=== PATIENT | male | born 1965 | race African-American/Black ===

== ENCOUNTER 2016-09-25 04:57 | Emergency (ER) | payer SELFPAY ==
[~2016-09-25] VITALS: Ht 182.9 cm; Wt 133.2 kg
[2016-09-25] MEDS ORDERED: METF100010 PO (05:11)
[2016-09-25] MEDS ORDERED: CEFTRIAXONE 250 MG ONE (05:27)
[2016-09-25] MEDS ORDERED: AZITHROMYCIN 500 MG TABLET ONE (05:27)
[2016-09-25] MEDS ORDERED: CEFTRIAXONE 250 MG IM ONE (05:30)
[2016-09-25] MEDS ORDERED: AZITHROMYCIN 500 MG TABLET PO ONE (05:30)
[2016-09-25 05:52] VITALS: BP 138/78
== END 2016-09-25 05:58 | disposition home or self-care (01) ==
LOC: ED 05:52
DX: Z76.0 Encounter for issue of repeat prescription (principal); N34.2 Other urethritis; Z20.2 Contact with and (suspected) exposure to infections with a predominantly sexual mode of transmission; E11.9 Type 2 diabetes mellitus without complications; I10 Essential (primary) hypertension
CPT/HCPCS: 96372; 99283; J0696

== ENCOUNTER 2018-08-26 08:57 | Inpatient (IN) | payer MEDICAID, OTHER ==
[~2018-08-26] VITALS: Ht 182.9 cm; Wt 103.6 kg
[~2018-08-26 08:57] MED LIST: METF100010 PO
[2018-08-26] MEDS ORDERED: SODIUM CHLORIDE 0.9% 1,000 ML IV ONE ×2 (09:33→13:13)
[2018-08-26] MEDS ORDERED: ONDANSETRON 2MG/ML, 2ML ONE (09:41)
[2018-08-26] MEDS ORDERED: MORPHINE SULFATE 4 MG/ML, 1ML ONE (09:41)
[2018-08-26] MEDS: MORPHINE SULFATE 4 MG/ML, 1ML IVPush PRN ×3 (09:45→16:49)
[2018-08-26] MEDS ORDERED: SODIUM CHLORIDE 0.9% 1,000ML IVBOLUS ONE ×4 (10:00→14:30)
[2018-08-26] MEDS ORDERED: SODIUM CHLORIDE FLUSH 10ML SYR IVF ONE (10:00)
[2018-08-26] MEDS ORDERED: ONDANSETRON 2MG/ML, 2ML IVPush ONE (10:00)
[2018-08-26 10:16] LABS: MEAN CORPUSCULAR HEMOGLOBIN 29.4 pg (27.5-34.5); MEAN CORPUSCULAR HGB CONC 33.2 g/dL (33.2-36.2); MEAN CORPUSCULAR VOLUME 88.4 fL (81-97); MEAN PLATELET VOLUME 8.4 fL (7.4-10.4); PLATELET COUNT 380 x10^3/uL (130-400); RED BLOOD COUNT 5.35 x10^6/uL (4.38-5.82); RED CELL DISTRIBUTION WIDTH 13.4 % (9.4-14.8)
[2018-08-26 10:28] LABS: ALANINE AMINOTRANSFERASE 24 U/L (12-78); ANION GAP 19 mmol/L (5-15); CALCIUM 9.6 mg/dL (8.5-10.1); CHLORIDE 84 mmol/L (98-107); CREATININE 1.39 mg/dL (0.7-1.3)
[2018-08-26 10:32] LABS: ALKALINE PHOSPHATASE 206 U/L (45-117); BILIRUBIN,TOTAL 1.3 mg/dL (0.2-1.0); TOTAL PROTEIN 8.9 g/dL (6.4-8.2)
[2018-08-26 10:46] LABS: ACETONE, SERUM Small (20mg/dL) mg/dL (Negative)
[2018-08-26 10:46] LABS: MD YES
[2018-08-26] MEDS ORDERED: INSULIN LISPRO 100 UNITS/ML, PEN ONE (10:48)
[2018-08-26 10:49] LABS: BAND#(MANUAL) 6.33 x10^3/uL; BANDS%(MANUAL) 28 % (0-7); LYMPH#(MANUAL) 0.68 x10^3/uL (1-3.4); LYMPHS% (MANUAL) 3 % (22-44); METAMYELOCYTES# (MANUAL) 0.23 x10^3/uL (0-0); METAMYELOCYTES% (MANUAL) 1 % (0-1); MONOS#(MANUAL) 0.68 x10^3/uL (0.3-2.7); MONOS% (MANUAL) 3 % (2-9); REACTIVE LYMPHS # (MANUAL) 0.23 x10^3/uL (0-0); REACTIVE LYMPHS % (MANUAL) 1 % (0-0); SEG#(MANUAL) 14.46 x10^3/uL (1.8-6.8); SEGS% (MANUAL) 64 % (42-75)
[2018-08-26 10:50] LABS: <PLATELET ESTIMATE> ADEQUATE; ANISOCYTOSIS 1+
[2018-08-26 10:51] LABS: GIANT PLATELETS 1+
[2018-08-26] MEDS ORDERED: PIPERACILLIN/TAZO/PMX 3.375GM 50 ML ONE (10:58)
[2018-08-26] MEDS ORDERED: INSULIN REGULAR 100 UNITS/ML, 3ML VIAL SQ-INSULIN ONE (11:00)
[2018-08-26] MEDS ORDERED: PIPERACILLIN/TAZO/PMX 4.5GM 100 ML IVPB ONE (11:00)
[2018-08-26] MEDS ORDERED: VANCOMYCIN PER PHARMACY MC ONE (11:00)
[2018-08-26] MEDS ORDERED: OMNIPAQUE 350 MG/ML, 100ML BOTTLE ONE (11:22)
[2018-08-26] MEDS ORDERED: VANCOMYCIN 1,800 MG in SODIUM CHLORIDE 0.9% 250 ML IV ONE (11:30)
[2018-08-26] MEDS ORDERED: PIPERACILLIN/TAZO/PMX 3.375GM 50 ML IV ONE (11:30)
[2018-08-26] MEDS ORDERED: LIDOCAINE-MPF 1%, 5ML INFIL ONE (12:00)
[2018-08-26] MEDS ORDERED: DIPH,PERTUSS(ACELL),TET VAC/PF 0.5 ML IM-VACC ONE ×2 (12:00→13:02)
[2018-08-26] MEDS ORDERED: LIDOCAINE 1%-EPI 1:100K, 20ML ONE (12:30)
[2018-08-26 12:37] LABS: CULTURE INDICATED? YES; MICROSCOPIC INDICATED
--- NOTE | 2018-08-26 13:09 | NUR ---
TASK RN: FIRST CONTACT WITH PT. PT RESTING ON GURNEY. NO ACUTE DISTRESS NOTED. PT VERBALIZES UNDERSTANDING REGARDING TDAP IMMUNIZATION. NO NEEDS REQUESTED AT THIS TIME.
[2018-08-26] MEDS ORDERED: SODIUM CHLORIDE FLUSH 10ML SYR IVF PRN (13:30)
[2018-08-26] MEDS: SODIUM CHLORIDE 0.9% 1,000 ML IV SCH ×2 (14:02→16:24)
[2018-08-26] MEDS ORDERED: PHARMACY MAY ADJ FOR RENAL FX MC PRN (14:30)
[2018-08-26] MEDS ORDERED: SODIUM CHLORIDE 0.9%, 500ML IVBOLUS PRN (14:30)
[2018-08-26] MEDS ORDERED: VANCOMYCIN PER PHARMACY MC PRN (14:30)
[2018-08-26] MEDS ORDERED: CEFEPIME 1 GM in DEXTROSE 5% 50 ML IV SCH (15:00)
[2018-08-26 15:11] VITALS: BP 138/83
[2018-08-26] MEDS ORDERED: PHARMACOKINETIC MONITORING MC PRN (15:30)
[2018-08-26] MEDS ORDERED: PHARMACOKINETIC CONSULTATION MC ONE (15:30)
[2018-08-26] MEDS: HEPARIN 5,000 UNITS/ML, 1ML SQ SCH (16:50)
[2018-08-26] MEDS: INSULIN LISPRO 100 UNITS/ML, PEN SQ-INSULIN SCH ×3 (17:53→22:55)
[2018-08-26 19:14] VITALS: BP 146/78
[2018-08-26] MEDS: SODIUM CHLORIDE FLUSH 10ML SYR IVF SCH (20:07)
[2018-08-26] MEDS ORDERED: DEXTROSE 50%, 50ML SYRINGE IVPush PRN (20:30)
[2018-08-26] MEDS ORDERED: DEXTROSE 4 GM TAB.CHEW PO PRN (20:30)
[2018-08-26] MEDS ORDERED: GLUCAGON 1 MG IM PRN (20:30)
[2018-08-26] MEDS ORDERED: INSULIN GLARGINE 100 UNITS/ML, PEN SQ-INSULIN SCH (21:00)
[2018-08-26 22:51] LABS: MEAN CORPUSCULAR HEMOGLOBIN 30.1 pg (27.5-34.5); MEAN CORPUSCULAR VOLUME 88.7 fL (81-97); PLATELET COUNT 369 x10^3/uL (130-400); RED CELL DISTRIBUTION WIDTH 13.5 % (9.4-14.8)
[2018-08-26 23:00] LABS: ALANINE AMINOTRANSFERASE 20 U/L (12-78); ANION GAP 10 mmol/L (5-15); CALCIUM 8.2 mg/dL (8.5-10.1); CHLORIDE 89 mmol/L (98-107); CREATININE 0.95 mg/dL (0.7-1.3)
[2018-08-26 23:02] LABS: ALKALINE PHOSPHATASE 156 U/L (45-117); BILIRUBIN,TOTAL 1.2 mg/dL (0.2-1.0); TOTAL PROTEIN 8.1 g/dL (6.4-8.2)
[2018-08-26 23:15] LABS: MD YES
[2018-08-26 23:16] LABS: BAND#(MANUAL) 2.87 x10^3/uL; BANDS%(MANUAL) 17 % (0-7); LYMPH#(MANUAL) 0.85 x10^3/uL (1-3.4); LYMPHS% (MANUAL) 5 % (22-44); MONOS#(MANUAL) 0.51 x10^3/uL (0.3-2.7); MONOS% (MANUAL) 3 % (2-9); SEG#(MANUAL) 12.68 x10^3/uL (1.8-6.8); SEGS% (MANUAL) 75 % (42-75)
[2018-08-26 23:17] LABS: <PLATELET ESTIMATE> ADEQUATE; ANISOCYTOSIS 1+; LARGE PLATELETS 1+
[2018-08-27 00:01] VITALS: BP 131/84
[2018-08-27] MEDS: SODIUM CHLORIDE 0.9% 1,000 ML IV SCH ×2 (00:42→05:10)
[2018-08-27] MEDS: CEFEPIME 1 GM in DEXTROSE 5% 100 ML IV SCH ×2 (00:42→08:22)
[2018-08-27] MEDS: HEPARIN 5,000 UNITS/ML, 1ML SQ SCH ×3 (00:56→17:14)
[2018-08-27 01:43] LABS: MEAN CORPUSCULAR VOLUME 88.2 fL (81-97); MEAN PLATELET VOLUME 7.7 fL (7.4-10.4); PLATELET COUNT 349 x10^3/uL (130-400); RED BLOOD COUNT 4.94 x10^6/uL (4.38-5.82); RED CELL DISTRIBUTION WIDTH 13.5 % (9.4-14.8)
[2018-08-27 01:52] LABS: ALANINE AMINOTRANSFERASE 22 U/L (12-78); ALBUMIN 1.5 g/dL (3.4-5.0); ANION GAP 11 mmol/L (5-15); CALCIUM 8.2 mg/dL (8.5-10.1); CHLORIDE 88 mmol/L (98-107); CREATININE 0.96 mg/dL (0.7-1.3)
[2018-08-27 01:54] LABS: ALKALINE PHOSPHATASE 146 U/L (45-117); BILIRUBIN,TOTAL 1.2 mg/dL (0.2-1.0); TOTAL PROTEIN 8.2 g/dL (6.4-8.2)
[2018-08-27 03:42] LABS: MD YES
[2018-08-27 03:44] LABS: <PLATELET ESTIMATE> ADEQUATE; ANISOCYTOSIS 1+; BAND#(MANUAL) 1.83 x10^3/uL; BANDS%(MANUAL) 11 % (0-7); LARGE PLATELETS 1+; LYMPH#(MANUAL) 1.66 x10^3/uL (1-3.4); LYMPHS% (MANUAL) 10 % (22-44); MONOS#(MANUAL) 1.33 x10^3/uL (0.3-2.7); MONOS% (MANUAL) 8 % (2-9); SEG#(MANUAL) 11.79 x10^3/uL (1.8-6.8); SEGS% (MANUAL) 71 % (42-75)
[2018-08-27] MEDS ORDERED: VANCOMYCIN 1,800 MG in SODIUM CHLORIDE 0.9% 250 ML IV SCH (05:00)
[2018-08-27] MEDS: MORPHINE SULFATE 4 MG/ML, 1ML IVPush PRN ×5 (05:10→20:47)
[2018-08-27] MEDS: INSULIN LISPRO 100 UNITS/ML, PEN SQ-INSULIN SCH ×8 (07:00→22:38)
[2018-08-27 07:35] VITALS: BP 132/83
[2018-08-27] MEDS: INSULIN GLARGINE 100 UNITS/ML, PEN SQ-INSULIN SCH ×2 (08:21→22:37)
[2018-08-27] MEDS: SODIUM CHLORIDE FLUSH 10ML SYR IVF SCH ×2 (08:22→22:34)
[2018-08-27] MEDS ORDERED: SODIUM CHLORIDE 0.9% 1,000ML IVBOLUS ONE ×2 (09:30)
[2018-08-27] MEDS ORDERED: CEFTRIAXONE PMX 2GM/50ML 50 ML IV SCH (10:30)
[2018-08-27] MEDS ORDERED: BISACODYL 10 MG SUPP PR PRN (12:00)
[2018-08-27 12:01] LABS: HCT (SEDRATE) 39.4 % (39.2-51.8)
[2018-08-27 12:37] VITALS: BP 146/81
[2018-08-27] MEDS ORDERED: GADOBUTROL 15 MMOL/15 ML VIAL ONE (14:49)
[2018-08-27 16:16] VITALS: BP 149/76
[2018-08-27] MEDS ORDERED: CLINDAMYCIN PMX 600MG/50ML 50 ML IV SCH (16:30)
[2018-08-27] MEDS: VANCOMYCIN 1,800 MG in SODIUM CHLORIDE 0.9% 250 ML IV SCH ×2 (17:00→17:14)
[2018-08-27] MEDS ORDERED: MIDAZOLAM 1 MG/ML, 2ML ONE (17:52)
[2018-08-27] MEDS ORDERED: FENTANYL PF 250 MCG/5ML ONE (17:52)
[2018-08-27] MEDS ORDERED: BACITRACIN 50,000 UNIT ONE (17:56)
[2018-08-27] MEDS ORDERED: BUPIVACAINE/PF-EPI 0.5% 1:200K ONE (17:56)
[2018-08-27] MEDS ORDERED: THROMBIN 5,000 UNIT VIAL TP ONE (17:56)
[2018-08-27] MEDS ORDERED: VANCOMYCIN 1,000 MG ONE (17:56)
[2018-08-27] MEDS ORDERED: OMNIPAQUE 350 MG/ML, 100ML BOTTLE ONE (18:13)
[2018-08-27] MEDS ORDERED: ROCURONIUM 10 MG/ML,10ML ONE (18:20)
[2018-08-27] MEDS ORDERED: ETOMIDATE 40 MG/20 ML ONE (18:20)
[2018-08-27] MEDS ORDERED: ALBUTEROL SULFATE 200 PUFFS/8.5 GR INH ONE (18:20)
[2018-08-27] MEDS ORDERED: SUCCINYLCHOLINE 20 MG/ML, 10ML ONE (18:20)
[2018-08-27] MEDS ORDERED: CEFAZOLIN 1,000 MG ONE (18:20)
[2018-08-27] MEDS ORDERED: PROPOFOL 100 ML IV ONE ×2 (19:54→23:15)
[2018-08-27] MEDS: VANCOMYCIN 2,000 MG in SODIUM CHLORIDE 0.9% 500 ML IV SCH (20:08)
[2018-08-27] MEDS: DOCUSATE 100 MG CAPSULE PO SCH (21:00)
[2018-08-27] MEDS: HEPARIN/LOVENOX MC SCH (21:30)
[2018-08-27] MEDS: NS + 20MEQ KCL 1,000 ML IV SCH (22:32)
[2018-08-27] MEDS: PROPOFOL 100 ML IV PRN (23:50)
[2018-08-28] MEDS ORDERED: PHARMACY MAY ADJ FOR RENAL FX MC SCH
[2018-08-28] MEDS ORDERED: LIDOCAINE-MPF 1%, 2ML ENDO PRN
[2018-08-28] MEDS: HEPARIN 5,000 UNITS/ML, 1ML SQ SCH (01:00)
[2018-08-28] MEDS: HEPARIN/LOVENOX MC SCH (04:35)
[2018-08-28 05:08] LABS: ANION GAP 7 mmol/L (5-15); CALCIUM 7.5 mg/dL (8.5-10.1); CHLORIDE 100 mmol/L (98-107); CREATININE 0.59 mg/dL (0.7-1.3)
[2018-08-28 05:13] LABS: MEAN CORPUSCULAR HEMOGLOBIN 29.8 pg (27.5-34.5); MEAN CORPUSCULAR HGB CONC 33.6 g/dL (33.2-36.2); MEAN CORPUSCULAR VOLUME 88.6 fL (81-97); MEAN PLATELET VOLUME 7.9 fL (7.4-10.4); PLATELET COUNT 283 x10^3/uL (130-400); RED BLOOD COUNT 4.02 x10^6/uL (4.38-5.82); RED CELL DISTRIBUTION WIDTH 13.9 % (9.4-14.8)
[2018-08-28] MEDS: PROPOFOL 100 ML IV PRN ×3 (05:22→21:30)
[2018-08-28 05:48] LABS: MD YES
[2018-08-28 05:50] LABS: BAND#(MANUAL) 0.87 x10^3/uL; BANDS%(MANUAL) 8 % (0-7); LYMPH#(MANUAL) 0.87 x10^3/uL (1-3.4); LYMPHS% (MANUAL) 8 % (22-44); MONOS#(MANUAL) 1.09 x10^3/uL (0.3-2.7); MONOS% (MANUAL) 10 % (2-9); SEG#(MANUAL) 8.07 x10^3/uL (1.8-6.8); SEGS% (MANUAL) 74 % (42-75)
[2018-08-28 05:51] LABS: ANISOCYTOSIS 1+; PMNS WITH VACUOLES 2+; TOXIC GRAN 1+
[2018-08-28 05:53] LABS: <PLATELET ESTIMATE> ADEQUATE; LARGE PLATELETS 1+
[2018-08-28] MEDS: VANCOMYCIN 2,000 MG in SODIUM CHLORIDE 0.9% 500 ML IV SCH (06:29)
[2018-08-28] MEDS: DOCUSATE 100 MG CAPSULE PO SCH ×2 (09:06→20:58)
[2018-08-28] MEDS: FENTANYL PF 100 MCG/2ML IVPush PRN (09:06)
[2018-08-28] MEDS: SODIUM CHLORIDE FLUSH 10ML SYR IVF SCH ×2 (09:06→20:52)
[2018-08-28] MEDS: PANTOPRAZOLE 40 MG IV IV SCH (09:06)
[2018-08-28] MEDS: INSULIN LISPRO 100 UNITS/ML, PEN SQ-INSULIN SCH ×4 (09:07→20:59)
[2018-08-28] MEDS: INSULIN GLARGINE 100 UNITS/ML, PEN SQ-INSULIN SCH ×2 (09:08→20:59)
[2018-08-28 09:38] LABS: MEAN CORPUSCULAR HEMOGLOBIN 29.5 pg (27.5-34.5); MEAN CORPUSCULAR HGB CONC 33.5 g/dL (33.2-36.2); MEAN PLATELET VOLUME 7.5 fL (7.4-10.4); PLATELET COUNT 253 x10^3/uL (130-400); RED BLOOD COUNT 3.94 x10^6/uL (4.38-5.82)
[2018-08-28 09:52] LABS: MD YES
[2018-08-28 09:55] LABS: BAND#(MANUAL) 0.65 x10^3/uL; BANDS%(MANUAL) 6 % (0-7); LYMPH#(MANUAL) 0.86 x10^3/uL (1-3.4); LYMPHS% (MANUAL) 8 % (22-44); MONOS#(MANUAL) 0.97 x10^3/uL (0.3-2.7); MONOS% (MANUAL) 9 % (2-9); REACTIVE LYMPHS # (MANUAL) 0.11 x10^3/uL (0-0); REACTIVE LYMPHS % (MANUAL) 1 % (0-0); SEG#(MANUAL) 8.21 x10^3/uL (1.8-6.8); SEGS% (MANUAL) 76 % (42-75); TOXIC GRAN 1+
[2018-08-28 09:56] LABS: <PLATELET ESTIMATE> ADEQUATE; ANISOCYTOSIS 1+; PMNS WITH VACUOLES 2+
[2018-08-28 09:57] LABS: LARGE PLATELETS 1+
[2018-08-28 10:11] LABS: ALBUMIN 1.1 g/dL (3.4-5.0)
[2018-08-28 10:14] LABS: ANION GAP 9 mmol/L (5-15); CALCIUM 7.4 mg/dL (8.5-10.1); CHLORIDE 100 mmol/L (98-107); CREATININE 0.61 mg/dL (0.7-1.3)
[2018-08-28 10:42] LABS: ALANINE AMINOTRANSFERASE 18 U/L (12-78); ALKALINE PHOSPHATASE 99 U/L (45-117); BILIRUBIN,TOTAL 0.9 mg/dL (0.2-1.0); TOTAL PROTEIN 6.6 g/dL (6.4-8.2)
[2018-08-28] MEDS ORDERED: ACETAMINOPHEN 650 MG/20.3 ML UDC ONE (14:41)
[2018-08-28] MEDS: ACETAMINOPHEN 650 MG/20.3 ML UDC NG PRN (14:59)
[2018-08-28] MEDS: NS + 20MEQ KCL 1,000 ML IV SCH ×2 (14:59→19:21)
[2018-08-28] MEDS ORDERED: VANCOMYCIN 2,000 MG in SODIUM CHLORIDE 0.9% 500 ML IV SCH (19:00)
[2018-08-29] MEDS: FENTANYL PF 100 MCG/2ML IVPush PRN ×3 (02:47→20:38)
[2018-08-29] MEDS: VANCOMYCIN 2,400 MG in SODIUM CHLORIDE 0.9% 500 ML IV SCH ×2 (02:55→17:59)
[2018-08-29] MEDS: PROPOFOL 100 ML IV PRN ×3 (02:57→23:37)
[2018-08-29 06:24] LABS: MEAN CORPUSCULAR HEMOGLOBIN 29.4 pg (27.5-34.5); MEAN CORPUSCULAR HGB CONC 33.1 g/dL (33.2-36.2); MEAN CORPUSCULAR VOLUME 88.6 fL (81-97); MEAN PLATELET VOLUME 7.6 fL (7.4-10.4); PLATELET COUNT 270 x10^3/uL (130-400); RED BLOOD COUNT 3.84 x10^6/uL (4.38-5.82); RED CELL DISTRIBUTION WIDTH 14.3 % (9.4-14.8)
[2018-08-29 06:29] LABS: ANION GAP 6 mmol/L (5-15); CALCIUM 7.5 mg/dL (8.5-10.1); CHLORIDE 105 mmol/L (98-107)
[2018-08-29 06:34] LABS: CREATININE 0.56 mg/dL (0.7-1.3)
[2018-08-29 07:44] LABS: MD YES
[2018-08-29 08:06] LABS: ANISOCYTOSIS 1+; BAND#(MANUAL) 2.03 x10^3/uL; BANDS%(MANUAL) 19 % (0-7); LYMPH#(MANUAL) 1.39 x10^3/uL (1-3.4); LYMPHS% (MANUAL) 13 % (22-44); MONOS#(MANUAL) 0.54 x10^3/uL (0.3-2.7); MONOS% (MANUAL) 5 % (2-9); SEG#(MANUAL) 6.74 x10^3/uL (1.8-6.8); SEGS% (MANUAL) 63 % (42-75)
[2018-08-29 08:07] LABS: <PLATELET ESTIMATE> ADEQUATE; <PLT MORPHOLOGY> NORMAL PLT MORPH; PMNS WITH VACUOLES 2+; TOXIC GRAN 1+
[2018-08-29 08:59] LABS: ALANINE AMINOTRANSFERASE 25 U/L (12-78); ALBUMIN 1.1 g/dL (3.4-5.0)
[2018-08-29] MEDS: DOCUSATE 100 MG CAPSULE PO SCH ×2 (09:00→20:39)
[2018-08-29 09:01] LABS: ALKALINE PHOSPHATASE 119 U/L (45-117); BILIRUBIN,TOTAL 0.9 mg/dL (0.2-1.0); TOTAL PROTEIN 6.6 g/dL (6.4-8.2)
--- NOTE | 2018-08-29 10:14 | NUR ---
TF GOAL: w/ propofol: VITAL HIGH PROTEIN @ 70ML/HR off propofol: VITAL HIGH PROTEIN @ 75ML/HR
[2018-08-29] MEDS: PANTOPRAZOLE 40 MG IV IV SCH (10:38)
[2018-08-29] MEDS: ENOXAPARIN 30 MG/0.3 ML SQ SCH ×2 (10:39→18:00)
[2018-08-29] MEDS: INSULIN GLARGINE 100 UNITS/ML, PEN SQ-INSULIN SCH ×2 (11:00→20:38)
[2018-08-29] MEDS: INSULIN LISPRO 100 UNITS/ML, PEN SQ-INSULIN SCH ×4 (11:41→20:39)
[2018-08-29] MEDS: SODIUM CHLORIDE FLUSH 10ML SYR IVF SCH ×2 (11:44→20:25)
[2018-08-29] MEDS ORDERED: BACITRACIN 50,000 UNIT ONE (13:07)
[2018-08-29] MEDS: NS + 20MEQ KCL 1,000 ML IV SCH ×3 (13:30→23:30)
[2018-08-29] MEDS: ACETAMINOPHEN 650 MG/20.3 ML UDC NG PRN (20:24)
[2018-08-29] MEDS ORDERED: INSULIN GLARGINE 100 UNITS/ML, PEN SQ-INSULIN SCH (21:00)
[2018-08-30] MEDS: VANCOMYCIN 2,400 MG in SODIUM CHLORIDE 0.9% 500 ML IV SCH ×2 (02:27→15:00)
[2018-08-30] MEDS: ENOXAPARIN 30 MG/0.3 ML SQ SCH ×2 (04:45→16:38)
[2018-08-30] MEDS: FENTANYL PF 100 MCG/2ML IVPush PRN ×3 (04:45→23:10)
[2018-08-30 05:45] LABS: MEAN CORPUSCULAR HEMOGLOBIN 29.9 pg (27.5-34.5); MEAN CORPUSCULAR HGB CONC 33.9 g/dL (33.2-36.2); MEAN CORPUSCULAR VOLUME 88.1 fL (81-97); MEAN PLATELET VOLUME 7.9 fL (7.4-10.4); PLATELET COUNT 267 x10^3/uL (130-400); RED BLOOD COUNT 3.72 x10^6/uL (4.38-5.82); RED CELL DISTRIBUTION WIDTH 14.2 % (9.4-14.8)
[2018-08-30 05:51] LABS: CHLORIDE 108 mmol/L (98-107)
[2018-08-30 06:01] LABS: ANION GAP 6 mmol/L (5-15); CALCIUM 7.5 mg/dL (8.5-10.1); CREATININE 0.58 mg/dL (0.7-1.3); TRIGLYCERIDES 145 mg/dL (50-200)
[2018-08-30 06:12] LABS: MD YES
[2018-08-30 06:14] LABS: ANISOCYTOSIS 1+; BAND#(MANUAL) 0.67 x10^3/uL; BANDS%(MANUAL) 6 % (0-7); LYMPH#(MANUAL) 1.33 x10^3/uL (1-3.4); LYMPHS% (MANUAL) 12 % (22-44); METAMYELOCYTES# (MANUAL) 0.11 x10^3/uL (0-0); METAMYELOCYTES% (MANUAL) 1 % (0-1); MONOS#(MANUAL) 0.44 x10^3/uL (0.3-2.7); MONOS% (MANUAL) 4 % (2-9); SEG#(MANUAL) 8.55 x10^3/uL (1.8-6.8); SEGS% (MANUAL) 77 % (42-75); TOXIC GRAN 1+
[2018-08-30 06:15] LABS: <PLATELET ESTIMATE> ADEQUATE
[2018-08-30 06:16] LABS: <PLT MORPHOLOGY> NORMAL PLT MORPH
[2018-08-30 06:18] LABS: PMNS WITH VACUOLES 1+
[2018-08-30 09:25] LABS: MEAN CORPUSCULAR HEMOGLOBIN 29.9 pg (27.5-34.5); MEAN CORPUSCULAR VOLUME 87.8 fL (81-97); MEAN PLATELET VOLUME 7.2 fL (7.4-10.4); PLATELET COUNT 279 x10^3/uL (130-400); RED BLOOD COUNT 3.76 x10^6/uL (4.38-5.82); RED CELL DISTRIBUTION WIDTH 13.8 % (9.4-14.8)
[2018-08-30] MEDS: SODIUM CHLORIDE FLUSH 10ML SYR IVF SCH ×2 (09:28→20:08)
[2018-08-30] MEDS: INSULIN GLARGINE 100 UNITS/ML, PEN SQ-INSULIN SCH ×2 (09:28→20:08)
[2018-08-30] MEDS: NS + 20MEQ KCL 1,000 ML IV SCH ×3 (09:28→21:35)
[2018-08-30] MEDS: INSULIN LISPRO 100 UNITS/ML, PEN SQ-INSULIN SCH ×4 (09:29→20:08)
[2018-08-30] MEDS: PANTOPRAZOLE 40 MG IV IV SCH (09:32)
[2018-08-30] MEDS: DOCUSATE 100 MG CAPSULE PO SCH ×2 (09:32→20:06)
[2018-08-30 09:33] LABS: ALBUMIN 1.1 g/dL (3.4-5.0); ANION GAP 5 mmol/L (5-15); CALCIUM 7.4 mg/dL (8.5-10.1); CHLORIDE 108 mmol/L (98-107)
[2018-08-30 09:36] LABS: ALANINE AMINOTRANSFERASE 27 U/L (12-78); ALKALINE PHOSPHATASE 134 U/L (45-117); BILIRUBIN,TOTAL 0.8 mg/dL (0.2-1.0); TOTAL PROTEIN 7.2 g/dL (6.4-8.2)
[2018-08-30 09:45] LABS: BAND#(MANUAL) 0.33 x10^3/uL; BANDS%(MANUAL) 3 % (0-7); LYMPH#(MANUAL) 1.33 x10^3/uL (1-3.4); LYMPHS% (MANUAL) 12 % (22-44); MD YES; MONOS#(MANUAL) 0.33 x10^3/uL (0.3-2.7); MONOS% (MANUAL) 3 % (2-9); SEGS% (MANUAL) 82 % (42-75)
[2018-08-30 09:46] LABS: PMNS WITH VACUOLES 2+; TOXIC GRAN 1+
[2018-08-30 09:47] LABS: <PLATELET ESTIMATE> ADEQUATE; <PLT MORPHOLOGY> NORMAL PLT MORPH; <RBC MORPHOLOGY> NORMAL
[2018-08-30] MEDS: ACETAMINOPHEN 650 MG/20.3 ML UDC NG PRN ×2 (16:38→23:10)
[2018-08-30] MEDS: VANCOMYCIN 2,000 MG in SODIUM CHLORIDE 0.9% 500 ML IV SCH ×2 (16:39→23:51)
[2018-08-31 04:36] LABS: ANION GAP 4 mmol/L (5-15); CALCIUM 7.2 mg/dL (8.5-10.1); CHLORIDE 114 mmol/L (98-107); CREATININE 0.55 mg/dL (0.7-1.3)
[2018-08-31 04:46] LABS: MEAN CORPUSCULAR HEMOGLOBIN 29.9 pg (27.5-34.5); MEAN CORPUSCULAR HGB CONC 33.5 g/dL (33.2-36.2); MEAN CORPUSCULAR VOLUME 89.2 fL (81-97); MEAN PLATELET VOLUME 8.5 fL (7.4-10.4); PLATELET COUNT 235 x10^3/uL (130-400); RED BLOOD COUNT 3.49 x10^6/uL (4.38-5.82); RED CELL DISTRIBUTION WIDTH 13.9 % (9.4-14.8)
[2018-08-31] MEDS: ACETAMINOPHEN 650 MG/20.3 ML UDC NG PRN ×2 (05:48→17:33)
[2018-08-31] MEDS: ENOXAPARIN 30 MG/0.3 ML SQ SCH ×2 (05:49→18:38)
[2018-08-31 05:51] LABS: MD YES
[2018-08-31 05:53] LABS: BAND#(MANUAL) 0.46 x10^3/uL; BANDS%(MANUAL) 5 % (0-7); EOS#(MANUAL) 0.09 x10^3/uL (0.0-0.4); EOS% (MANUAL) 1 % (1-7); LYMPH#(MANUAL) 0.83 x10^3/uL (1-3.4); LYMPHS% (MANUAL) 9 % (22-44); MONOS#(MANUAL) 0.09 x10^3/uL (0.3-2.7); MONOS% (MANUAL) 1 % (2-9); SEG#(MANUAL) 7.73 x10^3/uL (1.8-6.8); SEGS% (MANUAL) 84 % (42-75); TOXIC GRAN 1+
[2018-08-31 05:54] LABS: <PLATELET ESTIMATE> ADEQUATE; <PLT MORPHOLOGY> NORMAL PLT MORPH; PMNS WITH VACUOLES 1+; POLYCHROMASIA 1+
[2018-08-31] MEDS: PANTOPRAZOLE 40 MG IV IV SCH (08:37)
[2018-08-31] MEDS: INSULIN LISPRO 100 UNITS/ML, PEN SQ-INSULIN SCH ×3 (08:37→20:48)
[2018-08-31] MEDS: INSULIN GLARGINE 100 UNITS/ML, PEN SQ-INSULIN SCH ×2 (08:37→20:50)
[2018-08-31] MEDS: DOCUSATE 100 MG CAPSULE PO SCH (08:38)
[2018-08-31] MEDS: SODIUM CHLORIDE FLUSH 10ML SYR IVF SCH ×2 (08:38→20:42)
[2018-08-31] MEDS: VANCOMYCIN 2,000 MG in SODIUM CHLORIDE 0.9% 500 ML IV SCH (08:38)
[2018-08-31] MEDS ORDERED: LABETALOL 5MG/ML, 20ML IVPush PRN (10:30)
[2018-08-31 10:33] LABS: HCT (SEDRATE) 34.1 % (39.2-51.8)
[2018-08-31] MEDS: FENTANYL PF 100 MCG/2ML IVPush PRN (10:47)
[2018-08-31] MEDS: CEFTAROLINE 600 MG in SODIUM CHLORIDE 0.9% 100 ML IV SCH ×2 (11:47→22:59)
[2018-08-31] MEDS: NS + 20MEQ KCL 1,000 ML IV SCH (14:44)
[2018-08-31] MEDS ORDERED: VANCOMYCIN 5 MG/ML IV SCH (17:00)
[2018-08-31] MEDS: VANCOMYCIN 2,200 MG in SODIUM CHLORIDE 0.9% 500 ML IV SCH (17:32)
[2018-08-31] MEDS ORDERED: LABETALOL 5 MG/ML SYRINGE IVPush PRN (18:30)
[2018-08-31] MEDS: CARVEDILOL 6.25 MG TABLET PO SCH (18:38)
[2018-08-31] MEDS: DOCUSATE 50 MG/5 ML, 10ML UDC PO SCH (20:42)
[2018-08-31] MEDS: LISINOPRIL 10 MG TABLET PO SCH (20:42)
[2018-09-01] MEDS: VANCOMYCIN 2,200 MG in SODIUM CHLORIDE 0.9% 500 ML IV SCH ×3 (01:31→17:22)
[2018-09-01] MEDS: FENTANYL PF 100 MCG/2ML IVPush PRN ×6 (01:32→20:36)
[2018-09-01] MEDS: INSULIN LISPRO 100 UNITS/ML, PEN SQ-INSULIN SCH ×3 (03:50→20:38)
[2018-09-01 04:26] LABS: BASOPHILS # (AUTO) 0.02 x10^3/uL (0-0.1); BASOPHILS % (AUTO) 0 % (0-1); EOSINOPHILS # (AUTO) 0.06 x10^3/uL (0-0.4); EOSINOPHILS % (AUTO) 1 % (1-7); LYMPHOCYTES # (AUTO) 0.79 x10^3/uL (1-3.4); LYMPHOCYTES % (AUTO) 8 % (22-44); MD NO; MEAN CORPUSCULAR HEMOGLOBIN 30.6 pg (27.5-34.5); MEAN CORPUSCULAR HGB CONC 34.5 g/dL (33.2-36.2); MEAN CORPUSCULAR VOLUME 88.7 fL (81-97); MEAN PLATELET VOLUME 8.1 fL (7.4-10.4); MONOCYTES # (AUTO) 1.08 x10^3/uL (0.2-0.8); MONOCYTES % (AUTO) 11 % (2-9); NEUTROPHILS # (AUTO) 8.28 x10^3/uL (1.8-6.8); NEUTROPHILS % (AUTO) 81 % (42-75); PLATELET COUNT 274 x10^3/uL (130-400); RED BLOOD COUNT 3.62 x10^6/uL (4.38-5.82); RED CELL DISTRIBUTION WIDTH 14.1 % (9.4-14.8)
[2018-09-01 04:37] LABS: ANION GAP 5 mmol/L (5-15); CALCIUM 7.4 mg/dL (8.5-10.1); CHLORIDE 116 mmol/L (98-107); CREATININE 0.54 mg/dL (0.7-1.3)
[2018-09-01] MEDS: ENOXAPARIN 30 MG/0.3 ML SQ SCH ×2 (05:38→17:22)
[2018-09-01] MEDS: CARVEDILOL 6.25 MG TABLET PO SCH ×2 (05:38→17:22)
[2018-09-01] MEDS: NS + 20MEQ KCL 1,000 ML IV SCH (05:38)
[2018-09-01] MEDS: PANTOPRAZOLE 40 MG IV IV SCH (08:36)
[2018-09-01] MEDS: DOCUSATE 50 MG/5 ML, 10ML UDC PO SCH ×2 (08:37→20:36)
[2018-09-01] MEDS: LISINOPRIL 10 MG TABLET PO SCH ×2 (08:37→20:37)
[2018-09-01] MEDS: SODIUM CHLORIDE FLUSH 10ML SYR IVF SCH ×2 (08:37→21:01)
[2018-09-01] MEDS: INSULIN GLARGINE 100 UNITS/ML, PEN SQ-INSULIN SCH ×2 (08:37→20:37)
[2018-09-01] MEDS: LACTOBACILLUS 1GM/ PACKET PO SCH ×3 (09:52→21:01)
[2018-09-01] MEDS ORDERED: INSULIN LISPRO 100 UNITS/ML, PEN SQ-INSULIN SCH (11:00)
[2018-09-01] MEDS: CEFTAROLINE 600 MG in SODIUM CHLORIDE 0.9% 100 ML IV SCH ×2 (11:06→22:34)
[2018-09-02] MEDS: VANCOMYCIN 2,200 MG in SODIUM CHLORIDE 0.9% 500 ML IV SCH ×3 (00:22→17:34)
[2018-09-02] MEDS: FENTANYL PF 100 MCG/2ML IVPush PRN ×3 (01:20→09:08)
[2018-09-02] MEDS: ACETAMINOPHEN 650 MG/20.3 ML UDC NG PRN (04:33)
[2018-09-02] MEDS: INSULIN LISPRO 100 UNITS/ML, PEN SQ-INSULIN SCH ×4 (04:35→22:00)
[2018-09-02 05:18] LABS: ANION GAP 5 mmol/L (5-15); CALCIUM 7.6 mg/dL (8.5-10.1); CHLORIDE 116 mmol/L (98-107)
[2018-09-02 05:21] LABS: TRIGLYCERIDES 91 mg/dL (50-200)
[2018-09-02 05:36] LABS: MEAN CORPUSCULAR HEMOGLOBIN 29.1 pg (27.5-34.5); MEAN CORPUSCULAR VOLUME 91.1 fL (81-97); MEAN PLATELET VOLUME 8.4 fL (7.4-10.4); PLATELET COUNT 270 x10^3/uL (130-400); RED BLOOD COUNT 4.11 x10^6/uL (4.38-5.82); RED CELL DISTRIBUTION WIDTH 14.3 % (9.4-14.8)
[2018-09-02 05:37] LABS: MD YES
[2018-09-02 05:43] LABS: BAND#(MANUAL) 0.09 x10^3/uL; BANDS%(MANUAL) 1 % (0-7); LYMPH#(MANUAL) 1.69 x10^3/uL (1-3.4); LYMPHS% (MANUAL) 19 % (22-44); MONOS#(MANUAL) 0.36 x10^3/uL (0.3-2.7); MONOS% (MANUAL) 4 % (2-9); NRBC % (MANUAL) 1 % (0-1); POLYCHROMASIA 1+; SEG#(MANUAL) 6.76 x10^3/uL (1.8-6.8); SEGS% (MANUAL) 76 % (42-75)
[2018-09-02 05:44] LABS: <PLATELET ESTIMATE> ADEQUATE; <PLT MORPHOLOGY> NORMAL PLT MORPH; PMNS WITH VACUOLES 1+; TOXIC GRAN 1+
[2018-09-02] MEDS: CARVEDILOL 6.25 MG TABLET PO SCH ×2 (06:08→17:34)
[2018-09-02] MEDS: ENOXAPARIN 30 MG/0.3 ML SQ SCH ×2 (06:08→17:34)
[2018-09-02] MEDS: CEFTAROLINE 600 MG in SODIUM CHLORIDE 0.9% 100 ML IV SCH ×3 (07:38→23:43)
[2018-09-02] MEDS: SODIUM CHLORIDE FLUSH 10ML SYR IVF SCH ×2 (09:00→21:48)
[2018-09-02] MEDS: LISINOPRIL 10 MG TABLET PO SCH ×2 (09:07→21:48)
[2018-09-02] MEDS: LACTOBACILLUS 1GM/ PACKET PO SCH ×3 (09:07→21:48)
[2018-09-02] MEDS: PANTOPRAZOLE 40 MG IV IV SCH (09:07)
[2018-09-02] MEDS: DOCUSATE 50 MG/5 ML, 10ML UDC PO SCH ×2 (09:08→21:48)
[2018-09-02] MEDS: INSULIN GLARGINE 100 UNITS/ML, PEN SQ-INSULIN SCH (09:13)
[2018-09-02] MEDS ORDERED: INSULIN GLARGINE 100 UNITS/ML, PEN SQ-INSULIN ONE (11:00)
[2018-09-02] MEDS: OXYcodone 5 MG/5 ML ORAL.SOL UDC NG PRN ×2 (11:49→16:33)
[2018-09-02] MEDS ORDERED: INSULIN GLARGINE 100 UNITS/ML, PEN SQ-INSULIN SCH (21:00)
[2018-09-03] MEDS ORDERED: ROCURONIUM 10 MG/ML,10ML ONE
[2018-09-03] MEDS ORDERED: ETOMIDATE 40 MG/20 ML ONE
[2018-09-03] MEDS: FENTANYL PF 100 MCG/2ML IVPush PRN ×2 (00:04→11:43)
[2018-09-03] MEDS: VANCOMYCIN 2,200 MG in SODIUM CHLORIDE 0.9% 500 ML IV SCH ×3 (00:57→17:46)
[2018-09-03 04:49] LABS: BASOPHILS # (AUTO) 0.05 x10^3/uL (0-0.1); BASOPHILS % (AUTO) 1 % (0-1); EOSINOPHILS # (AUTO) 0.06 x10^3/uL (0-0.4); EOSINOPHILS % (AUTO) 1 % (1-7); LYMPHOCYTES % (AUTO) 11 % (22-44); MD NO; MEAN CORPUSCULAR HGB CONC 33.2 g/dL (33.2-36.2); MEAN CORPUSCULAR VOLUME 90.3 fL (81-97); MEAN PLATELET VOLUME 8.6 fL (7.4-10.4); MONOCYTES # (AUTO) 0.09 x10^3/uL (0.2-0.8); MONOCYTES % (AUTO) 1 % (2-9); NEUTROPHILS # (AUTO) 8.95 x10^3/uL (1.8-6.8); NEUTROPHILS % (AUTO) 87 % (42-75); PLATELET COUNT 341 x10^3/uL (130-400); RED BLOOD COUNT 3.43 x10^6/uL (4.38-5.82); RED CELL DISTRIBUTION WIDTH 14.2 % (9.4-14.8)
[2018-09-03 04:54] LABS: ANION GAP 4 mmol/L (5-15); CALCIUM 7.4 mg/dL (8.5-10.1); CHLORIDE 120 mmol/L (98-107); CREATININE 0.52 mg/dL (0.7-1.3)
[2018-09-03] MEDS: ENOXAPARIN 30 MG/0.3 ML SQ SCH ×2 (05:24→18:41)
[2018-09-03] MEDS: INSULIN LISPRO 100 UNITS/ML, PEN SQ-INSULIN SCH ×4 (05:24→21:00)
[2018-09-03] MEDS: CARVEDILOL 6.25 MG TABLET PO SCH ×2 (05:24→16:50)
[2018-09-03] MEDS: ACETAMINOPHEN 650 MG/20.3 ML UDC NG PRN (07:49)
[2018-09-03] MEDS: CEFTAROLINE 600 MG in SODIUM CHLORIDE 0.9% 100 ML IV SCH ×2 (07:56→16:50)
[2018-09-03] MEDS: LISINOPRIL 10 MG TABLET PO SCH ×2 (09:23→21:50)
[2018-09-03] MEDS: LACTOBACILLUS 1GM/ PACKET PO SCH ×3 (09:23→21:50)
[2018-09-03] MEDS: PANTOPRAZOLE 40 MG IV IV SCH (09:23)
[2018-09-03] MEDS: DOCUSATE 50 MG/5 ML, 10ML UDC PO SCH ×2 (09:24→21:50)
[2018-09-03] MEDS: SODIUM CHLORIDE FLUSH 10ML SYR IVF SCH ×2 (09:24→21:46)
[2018-09-03] MEDS: INSULIN GLARGINE 100 UNITS/ML, PEN SQ-INSULIN SCH ×2 (09:38→21:45)
[2018-09-03] MEDS: OXYcodone 5 MG/5 ML ORAL.SOL UDC NG PRN ×3 (09:46→21:50)
[2018-09-03] MEDS: PROPOFOL 100 ML IV PRN (10:58)
[2018-09-03] MEDS ORDERED: ROCURONIUM 10 MG/ML,10ML IVPush ONE (11:20)
[2018-09-03] MEDS ORDERED: ETOMIDATE 20 MG/10 ML IVPush ONE (11:20)
[2018-09-03] MEDS ORDERED: GADOBUTROL 15 MMOL/15 ML VIAL ONE (13:28)
[2018-09-04] MEDS: CEFTAROLINE 600 MG in SODIUM CHLORIDE 0.9% 100 ML IV SCH ×3 (00:07→15:41)
[2018-09-04] MEDS: VANCOMYCIN 2,200 MG in SODIUM CHLORIDE 0.9% 500 ML IV SCH (01:08)
[2018-09-04] MEDS: FENTANYL PF 100 MCG/2ML IVPush PRN ×2 (03:46→13:14)
[2018-09-04] MEDS: INSULIN LISPRO 100 UNITS/ML, PEN SQ-INSULIN SCH ×4 (04:43→21:59)
[2018-09-04 05:13] LABS: MEAN CORPUSCULAR HEMOGLOBIN 30.5 pg (27.5-34.5); MEAN CORPUSCULAR VOLUME 89.6 fL (81-97); MEAN PLATELET VOLUME 8.6 fL (7.4-10.4); PLATELET COUNT 363 x10^3/uL (130-400); RED BLOOD COUNT 3.43 x10^6/uL (4.38-5.82); RED CELL DISTRIBUTION WIDTH 14.1 % (9.4-14.8)
[2018-09-04 05:25] LABS: CHLORIDE 117 mmol/L (98-107)
[2018-09-04 05:30] LABS: ANION GAP 5 mmol/L (5-15); CALCIUM 7.6 mg/dL (8.5-10.1); CREATININE 0.56 mg/dL (0.7-1.3)
[2018-09-04] MEDS: CARVEDILOL 6.25 MG TABLET PO SCH ×2 (06:25→16:51)
[2018-09-04] MEDS: ENOXAPARIN 30 MG/0.3 ML SQ SCH ×2 (06:26→16:51)
[2018-09-04 06:30] LABS: BASOPHILS # (AUTO) 0.06 x10^3/uL (0-0.1); BASOPHILS % (AUTO) 1 % (0-1); EOSINOPHILS # (AUTO) 0.06 x10^3/uL (0-0.4); EOSINOPHILS % (AUTO) 1 % (1-7); LYMPHOCYTES # (AUTO) 1.14 x10^3/uL (1-3.4); LYMPHOCYTES % (AUTO) 10 % (22-44); MD SCAN; MONOCYTES % (AUTO) 2 % (2-9); NEUTROPHILS # (AUTO) 10.03 x10^3/uL (1.8-6.8); NEUTROPHILS % (AUTO) 87 % (42-75)
[2018-09-04] MEDS: DAPTOMYCIN 1,000 MG in SODIUM CHLORIDE 0.9% 100 ML IV SCH (08:03)
[2018-09-04] MEDS: LACTOBACILLUS 1GM/ PACKET PO SCH ×3 (08:32→21:57)
[2018-09-04] MEDS: PANTOPRAZOLE 40 MG IV IV SCH (08:32)
[2018-09-04] MEDS: DOCUSATE 50 MG/5 ML, 10ML UDC PO SCH ×2 (08:32→21:57)
[2018-09-04] MEDS: LISINOPRIL 10 MG TABLET PO SCH ×2 (08:33→21:57)
[2018-09-04] MEDS: SODIUM CHLORIDE FLUSH 10ML SYR IVF SCH ×2 (08:37→21:57)
[2018-09-04] MEDS: INSULIN GLARGINE 100 UNITS/ML, PEN SQ-INSULIN SCH ×2 (08:38→22:00)
[2018-09-04] MEDS ORDERED: PROPOFOL 10 MG/ML, 20ML ONE (13:10)
[2018-09-05] MEDS: CEFTAROLINE 600 MG in SODIUM CHLORIDE 0.9% 100 ML IV SCH ×3 (00:03→18:17)
[2018-09-05] MEDS: INSULIN LISPRO 100 UNITS/ML, PEN SQ-INSULIN SCH ×3 (03:09→18:25)
[2018-09-05 04:17] LABS: MEAN CORPUSCULAR HEMOGLOBIN 29.2 pg (27.5-34.5); MEAN CORPUSCULAR HGB CONC 32.3 g/dL (33.2-36.2); MEAN CORPUSCULAR VOLUME 90.3 fL (81-97); MEAN PLATELET VOLUME 8.1 fL (7.4-10.4); PLATELET COUNT 367 x10^3/uL (130-400); RED BLOOD COUNT 3.24 x10^6/uL (4.38-5.82); RED CELL DISTRIBUTION WIDTH 14.2 % (9.4-14.8)
[2018-09-05 04:25] LABS: CHLORIDE 115 mmol/L (98-107)
[2018-09-05 04:26] LABS: ANION GAP 5 mmol/L (5-15); CALCIUM 7.8 mg/dL (8.5-10.1); CREATININE 0.56 mg/dL (0.7-1.3); TRIGLYCERIDES 79 mg/dL (50-200)
[2018-09-05 04:51] LABS: BASOPHILS # (AUTO) 0.01 x10^3/uL (0-0.1); BASOPHILS % (AUTO) 0 % (0-1); EOSINOPHILS % (AUTO) 1 % (1-7); LYMPHOCYTES # (AUTO) 1.01 x10^3/uL (1-3.4); LYMPHOCYTES % (AUTO) 11 % (22-44); MD SCAN; MONOCYTES % (AUTO) 6 % (2-9); NEUTROPHILS # (AUTO) 7.36 x10^3/uL (1.8-6.8); NEUTROPHILS % (AUTO) 82 % (42-75)
[2018-09-05] MEDS: CARVEDILOL 6.25 MG TABLET PO SCH ×2 (06:19→18:18)
[2018-09-05] MEDS: ENOXAPARIN 30 MG/0.3 ML SQ SCH ×2 (06:19→18:18)
[2018-09-05] MEDS: DOCUSATE 50 MG/5 ML, 10ML UDC PO SCH ×2 (07:55→20:59)
[2018-09-05] MEDS: LACTOBACILLUS 1GM/ PACKET PO SCH ×3 (07:55→20:44)
[2018-09-05] MEDS: PANTOPRAZOLE 40 MG IV IV SCH (07:55)
[2018-09-05] MEDS: LISINOPRIL 10 MG TABLET PO SCH ×2 (07:56→20:44)
[2018-09-05] MEDS: SODIUM CHLORIDE FLUSH 10ML SYR IVF SCH ×2 (07:57→20:45)
[2018-09-05] MEDS ORDERED: ALBUMIN HUMAN 25% 100 ML IV SCH (08:30)
[2018-09-05] MEDS: INSULIN GLARGINE 100 UNITS/ML, PEN SQ-INSULIN SCH ×2 (08:35→20:46)
[2018-09-05] MEDS: FENTANYL PF 100 MCG/2ML IVPush PRN ×4 (08:36→22:10)
[2018-09-05] MEDS: FAMOTIDINE 20 MG/2 ML IVPush SCH ×2 (09:00→20:44)
[2018-09-05] MEDS: PROPOFOL 100 ML IV PRN ×2 (09:18→13:59)
[2018-09-05] MEDS: DAPTOMYCIN 1,000 MG in SODIUM CHLORIDE 0.9% 100 ML IV SCH (09:24)
[2018-09-05] MEDS ORDERED: VECURONIUM 10 MG IV PRN (09:30)
[2018-09-05] MEDS: OXYcodone 5 MG/5 ML ORAL.SOL UDC NG PRN (09:40)
[2018-09-05] MEDS ORDERED: MIDAZOLAM 1 MG/ML, 5ML IVPush ONE ×3 (11:00→17:30)
[2018-09-05] MEDS: FUROSEMIDE 40 MG/4 ML IV SCH ×2 (13:50→20:44)
[2018-09-05] MEDS ORDERED: VECURONIUM 10 MG IVPush ONE ×2 (14:30→17:30)
[2018-09-05] MEDS ORDERED: GADOBUTROL 10 MMOL/10 ML PFS ONE (17:07)
[2018-09-06] MEDS: OXYcodone 5 MG/5 ML ORAL.SOL UDC NG PRN (01:13)
[2018-09-06] MEDS: INSULIN LISPRO 100 UNITS/ML, PEN SQ-INSULIN SCH ×5 (01:16→22:22)
[2018-09-06] MEDS: CEFTAROLINE 600 MG in SODIUM CHLORIDE 0.9% 100 ML IV SCH ×3 (02:26→18:27)
[2018-09-06 04:35] LABS: MEAN CORPUSCULAR HEMOGLOBIN 29.5 pg (27.5-34.5); MEAN CORPUSCULAR HGB CONC 32.9 g/dL (33.2-36.2); MEAN CORPUSCULAR VOLUME 89.7 fL (81-97); PLATELET COUNT 394 x10^3/uL (130-400); RED BLOOD COUNT 3.23 x10^6/uL (4.38-5.82)
[2018-09-06 04:43] LABS: CHLORIDE 113 mmol/L (98-107)
[2018-09-06 04:55] LABS: ALANINE AMINOTRANSFERASE 13 U/L (12-78); ALBUMIN 1.5 g/dL (3.4-5.0); ALKALINE PHOSPHATASE 80 U/L (45-117); ANION GAP 3 mmol/L (5-15); BILIRUBIN,TOTAL 0.4 mg/dL (0.2-1.0); CALCIUM 7.8 mg/dL (8.5-10.1); CREATININE 0.56 mg/dL (0.7-1.3); TOTAL PROTEIN 7.1 g/dL (6.4-8.2)
[2018-09-06] MEDS: CARVEDILOL 6.25 MG TABLET PO SCH ×2 (05:47→17:31)
[2018-09-06] MEDS: ENOXAPARIN 30 MG/0.3 ML SQ SCH ×2 (05:49→17:31)
[2018-09-06 05:51] LABS: BASOPHILS # (AUTO) 0.01 x10^3/uL (0-0.1); BASOPHILS % (AUTO) 0 % (0-1); EOSINOPHILS # (AUTO) 0.09 x10^3/uL (0-0.4); EOSINOPHILS % (AUTO) 1 % (1-7); LYMPHOCYTES # (AUTO) 1.24 x10^3/uL (1-3.4); LYMPHOCYTES % (AUTO) 16 % (22-44); MD SCAN; MONOCYTES % (AUTO) 1 % (2-9); NEUTROPHILS # (AUTO) 6.55 x10^3/uL (1.8-6.8); NEUTROPHILS % (AUTO) 82 % (42-75)
[2018-09-06] MEDS: DOCUSATE 50 MG/5 ML, 10ML UDC PO SCH ×2 (08:07→19:48)
[2018-09-06] MEDS: LACTOBACILLUS 1GM/ PACKET PO SCH ×3 (08:08→19:49)
[2018-09-06] MEDS: POLYETHYLENE GLYCOL 17 GM PACKET PO PRN (08:08)
[2018-09-06] MEDS: LISINOPRIL 10 MG TABLET PO SCH ×2 (08:08→19:49)
[2018-09-06] MEDS: FAMOTIDINE 20 MG/2 ML IVPush SCH ×2 (08:09→19:48)
[2018-09-06] MEDS: SODIUM CHLORIDE FLUSH 10ML SYR IVF SCH ×2 (08:09→19:48)
[2018-09-06] MEDS: FUROSEMIDE 40 MG/4 ML IV SCH ×2 (08:09→19:48)
[2018-09-06] MEDS: INSULIN GLARGINE 100 UNITS/ML, PEN SQ-INSULIN SCH ×2 (08:12→22:21)
[2018-09-06] MEDS ORDERED: KSCALE TO 4.0 IV SCH (09:00)
[2018-09-06] MEDS: DAPTOMYCIN 1,000 MG in SODIUM CHLORIDE 0.9% 100 ML IV SCH (09:42)
[2018-09-06] MEDS ORDERED: VECURONIUM 10 MG IVPush ONE (10:00)
[2018-09-06] MEDS ORDERED: MIDAZOLAM 1 MG/ML, 5ML ONE ×2 (10:05→10:15)
[2018-09-06] MEDS ORDERED: MIDAZOLAM 1 MG/ML, 2ML IVPush ONE (13:00)
[2018-09-06] MEDS ORDERED: MIDAZOLAM 1 MG/ML, 5ML IVPush ONE (13:00)
[2018-09-06] MEDS ORDERED: POTASSIUM CHLORIDE 10% 40 MEQ/30 ML UDC PO ONE ×2 (14:00→19:00)
[2018-09-07] MEDS: FENTANYL PF 100 MCG/2ML IVPush PRN (00:27)
[2018-09-07] MEDS: CEFTAROLINE 600 MG in SODIUM CHLORIDE 0.9% 100 ML IV SCH ×3 (02:05→17:40)
[2018-09-07 04:23] LABS: ANION GAP 4 mmol/L (5-15); CALCIUM 8.1 mg/dL (8.5-10.1); CHLORIDE 112 mmol/L (98-107); CREATININE 0.59 mg/dL (0.7-1.3)
[2018-09-07 04:32] LABS: MEAN CORPUSCULAR HEMOGLOBIN 30.2 pg (27.5-34.5); MEAN CORPUSCULAR HGB CONC 33.4 g/dL (33.2-36.2); MEAN CORPUSCULAR VOLUME 90.5 fL (81-97); MEAN PLATELET VOLUME 8.5 fL (7.4-10.4); PLATELET COUNT 403 x10^3/uL (130-400); RED BLOOD COUNT 3.28 x10^6/uL (4.38-5.82); RED CELL DISTRIBUTION WIDTH 14.1 % (9.4-14.8)
[2018-09-07 05:22] LABS: MD YES
[2018-09-07 05:27] LABS: ANISOCYTOSIS 1+; BAND#(MANUAL) 0.26 x10^3/uL; BANDS%(MANUAL) 3 % (0-7); EOS#(MANUAL) 0.09 x10^3/uL (0.0-0.4); EOS% (MANUAL) 1 % (1-7); LYMPHS% (MANUAL) 17 % (22-44); MONOS#(MANUAL) 0.35 x10^3/uL (0.3-2.7); MONOS% (MANUAL) 4 % (2-9); NRBC % (MANUAL) 1 % (0-1); SEGS% (MANUAL) 75 % (42-75)
[2018-09-07 05:29] LABS: <PLATELET ESTIMATE> ADEQUATE; <PLT MORPHOLOGY> NORMAL PLT MORPH
[2018-09-07] MEDS: CARVEDILOL 6.25 MG TABLET PO SCH ×2 (05:41→17:27)
[2018-09-07] MEDS: ENOXAPARIN 30 MG/0.3 ML SQ SCH ×2 (05:41→17:27)
[2018-09-07] MEDS: INSULIN LISPRO 100 UNITS/ML, PEN SQ-INSULIN SCH ×4 (05:42→23:47)
[2018-09-07] MEDS: OXYcodone 5 MG/5 ML ORAL.SOL UDC NG PRN ×3 (06:05→21:15)
[2018-09-07] MEDS: LACTOBACILLUS 1GM/ PACKET PO SCH ×3 (09:01→21:20)
[2018-09-07] MEDS: FUROSEMIDE 40 MG/4 ML IV SCH ×2 (09:01→21:15)
[2018-09-07] MEDS: SODIUM CHLORIDE FLUSH 10ML SYR IVF SCH ×2 (09:01→21:16)
[2018-09-07] MEDS: LISINOPRIL 10 MG TABLET PO SCH ×2 (09:01→21:16)
[2018-09-07] MEDS: FAMOTIDINE 20 MG/2 ML IVPush SCH ×2 (09:01→21:15)
[2018-09-07] MEDS: DOCUSATE 50 MG/5 ML, 10ML UDC PO SCH ×2 (09:07→21:15)
[2018-09-07] MEDS: INSULIN GLARGINE 100 UNITS/ML, PEN SQ-INSULIN SCH ×2 (09:10→21:19)
[2018-09-07] MEDS: DAPTOMYCIN 1,000 MG in SODIUM CHLORIDE 0.9% 100 ML IV SCH (10:09)
[2018-09-07] MEDS ORDERED: POTASSIUM CHLORIDE 10% 40 MEQ/30 ML UDC PO ONE (11:00)
[2018-09-08] MEDS: CEFTAROLINE 600 MG in SODIUM CHLORIDE 0.9% 100 ML IV SCH ×3 (02:24→19:39)
[2018-09-08] MEDS: OXYcodone 5 MG/5 ML ORAL.SOL UDC NG PRN ×2 (04:11→09:58)
[2018-09-08 04:47] LABS: MEAN CORPUSCULAR HEMOGLOBIN 29.9 pg (27.5-34.5); MEAN CORPUSCULAR HGB CONC 33.6 g/dL (33.2-36.2); MEAN CORPUSCULAR VOLUME 88.8 fL (81-97); MEAN PLATELET VOLUME 8.1 fL (7.4-10.4); PLATELET COUNT 425 x10^3/uL (130-400); RED BLOOD COUNT 3.56 x10^6/uL (4.38-5.82); RED CELL DISTRIBUTION WIDTH 13.8 % (9.4-14.8)
[2018-09-08 05:05] LABS: ANION GAP 3 mmol/L (5-15); CALCIUM 8.6 mg/dL (8.5-10.1); CHLORIDE 109 mmol/L (98-107)
[2018-09-08 05:07] LABS: CREATININE 0.62 mg/dL (0.7-1.3); TRIGLYCERIDES 64 mg/dL (50-200)
[2018-09-08 05:08] LABS: MD YES
[2018-09-08 05:09] LABS: ANISOCYTOSIS 1+; BAND#(MANUAL) 0.11 x10^3/uL; BANDS%(MANUAL) 1 % (0-7); EOS#(MANUAL) 0.11 x10^3/uL (0.0-0.4); EOS% (MANUAL) 1 % (1-7); LYMPHS% (MANUAL) 13 % (22-44); MONOS#(MANUAL) 0.32 x10^3/uL (0.3-2.7); MONOS% (MANUAL) 3 % (2-9); NRBC % (MANUAL) 1 % (0-1); SEG#(MANUAL) 8.86 x10^3/uL (1.8-6.8); SEGS% (MANUAL) 82 % (42-75)
[2018-09-08 05:10] LABS: <PLATELET ESTIMATE> INCREASED; <PLT MORPHOLOGY> NORMAL PLT MORPH; POLYCHROMASIA 1+
[2018-09-08] MEDS: ENOXAPARIN 30 MG/0.3 ML SQ SCH ×2 (05:35→18:09)
[2018-09-08] MEDS: CARVEDILOL 6.25 MG TABLET PO SCH ×2 (05:36→18:09)
[2018-09-08] MEDS: INSULIN LISPRO 100 UNITS/ML, PEN SQ-INSULIN SCH ×3 (05:36→18:35)
[2018-09-08] MEDS: FUROSEMIDE 40 MG/4 ML IV SCH ×2 (08:17→21:26)
[2018-09-08] MEDS: SODIUM CHLORIDE FLUSH 10ML SYR IVF SCH ×2 (08:17→21:31)
[2018-09-08] MEDS: FAMOTIDINE 20 MG/2 ML IVPush SCH ×2 (08:17→21:27)
[2018-09-08] MEDS: DOCUSATE 50 MG/5 ML, 10ML UDC PO SCH ×3 (08:18→21:27)
[2018-09-08] MEDS: LACTOBACILLUS 1GM/ PACKET PO SCH ×4 (08:18→21:27)
[2018-09-08] MEDS: LISINOPRIL 10 MG TABLET PO SCH ×3 (08:18→21:28)
[2018-09-08] MEDS: POLYETHYLENE GLYCOL 17 GM PACKET PO PRN (08:39)
[2018-09-08] MEDS: DAPTOMYCIN 1,000 MG in SODIUM CHLORIDE 0.9% 100 ML IV SCH (09:58)
[2018-09-08] MEDS: INSULIN GLARGINE 100 UNITS/ML, PEN SQ-INSULIN SCH ×2 (10:12→21:28)
--- NOTE | 2018-09-08 10:44 | NUR ---
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 -Single ice chips ok with assist -Arressive oral care [place] sheet posted Addendum: 09/08/18 at [address] Amended: Links added.
[2018-09-08 16:00] VITALS: BP 132/85
[2018-09-08 18:13] VITALS: BP 126/83
[2018-09-08 19:55] VITALS: BP 126/76
[2018-09-08 23:41] VITALS: BP 118/78
[2018-09-09 02:27] VITALS: BP 128/75
[2018-09-09] MEDS: CEFTAROLINE 600 MG in SODIUM CHLORIDE 0.9% 100 ML IV SCH ×3 (03:37→20:03)
[2018-09-09 05:09] LABS: HCT (SEDRATE) 31.9 % (39.2-51.8)
[2018-09-09 05:15] LABS: BASOPHILS # (AUTO) 0.04 x10^3/uL (0-0.1); BASOPHILS % (AUTO) 0 % (0-1); EOSINOPHILS # (AUTO) 0.12 x10^3/uL (0-0.4); EOSINOPHILS % (AUTO) 1 % (1-7); LYMPHOCYTES # (AUTO) 1.51 x10^3/uL (1-3.4); LYMPHOCYTES % (AUTO) 15 % (22-44); MD NO; MEAN CORPUSCULAR HEMOGLOBIN 30.3 pg (27.5-34.5); MEAN CORPUSCULAR HGB CONC 33.9 g/dL (33.2-36.2); MEAN CORPUSCULAR VOLUME 89.4 fL (81-97); MEAN PLATELET VOLUME 8.1 fL (7.4-10.4); MONOCYTES # (AUTO) 0.15 x10^3/uL (0.2-0.8); MONOCYTES % (AUTO) 2 % (2-9); NEUTROPHILS # (AUTO) 8.14 x10^3/uL (1.8-6.8); NEUTROPHILS % (AUTO) 82 % (42-75); PLATELET COUNT 451 x10^3/uL (130-400); RED BLOOD COUNT 3.58 x10^6/uL (4.38-5.82); RED CELL DISTRIBUTION WIDTH 13.9 % (9.4-14.8)
[2018-09-09 05:18] LABS: ANION GAP 5 mmol/L (5-15); CALCIUM 8.7 mg/dL (8.5-10.1); CHLORIDE 108 mmol/L (98-107)
[2018-09-09 05:26] LABS: CREATINE KINASE, TOTAL 175 U/L (39-308); CREATININE 0.58 mg/dL (0.7-1.3)
[2018-09-09] MEDS: CARVEDILOL 6.25 MG TABLET PO SCH ×2 (05:49→18:01)
[2018-09-09] MEDS: INSULIN LISPRO 100 UNITS/ML, PEN SQ-INSULIN SCH ×4 (05:49→18:00)
[2018-09-09] MEDS: ENOXAPARIN 30 MG/0.3 ML SQ SCH ×2 (05:49→18:05)
[2018-09-09 07:24] VITALS: BP 114/85
[2018-09-09] MEDS: DAPTOMYCIN 1,000 MG in SODIUM CHLORIDE 0.9% 100 ML IV SCH (08:11)
[2018-09-09] MEDS: SODIUM CHLORIDE FLUSH 10ML SYR IVF SCH ×2 (09:00→20:03)
[2018-09-09] MEDS: DOCUSATE 50 MG/5 ML, 10ML UDC PO SCH ×2 (10:07→22:16)
[2018-09-09] MEDS: FUROSEMIDE 40 MG/4 ML IV SCH (10:08)
[2018-09-09] MEDS: LACTOBACILLUS 1GM/ PACKET PO SCH ×3 (10:08→22:16)
[2018-09-09] MEDS: INSULIN GLARGINE 100 UNITS/ML, PEN SQ-INSULIN SCH ×2 (10:08→22:30)
[2018-09-09] MEDS: FAMOTIDINE 20 MG/2 ML IVPush SCH (10:09)
[2018-09-09] MEDS: LISINOPRIL 10 MG TABLET PO SCH ×2 (10:09→22:17)
[2018-09-09 12:53] VITALS: BP 135/87
--- NOTE | 2018-09-09 13:38 | NUR ---
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
[2018-09-09 20:52] VITALS: BP 106/55
[2018-09-09] MEDS: OXYcodone 5 MG/5 ML ORAL.SOL UDC NG PRN (22:55)
[2018-09-10] MEDS: INSULIN LISPRO 100 UNITS/ML, PEN SQ-INSULIN SCH ×5 (00:58→21:00)
[2018-09-10 03:29] VITALS: BP 130/80
[2018-09-10] MEDS: CARVEDILOL 6.25 MG TABLET PO SCH ×2 (05:07→18:09)
[2018-09-10] MEDS: CEFTAROLINE 600 MG in SODIUM CHLORIDE 0.9% 100 ML IV SCH ×3 (05:07→20:40)
[2018-09-10] MEDS: ENOXAPARIN 30 MG/0.3 ML SQ SCH ×2 (05:07→18:09)
[2018-09-10 05:30] LABS: BASOPHILS # (AUTO) 0.08 x10^3/uL (0-0.1); BASOPHILS % (AUTO) 1 % (0-1); EOSINOPHILS # (AUTO) 0.15 x10^3/uL (0-0.4); EOSINOPHILS % (AUTO) 2 % (1-7); LYMPHOCYTES # (AUTO) 1.38 x10^3/uL (1-3.4); LYMPHOCYTES % (AUTO) 15 % (22-44); MD NO; MEAN CORPUSCULAR HEMOGLOBIN 30.2 pg (27.5-34.5); MEAN CORPUSCULAR HGB CONC 33.8 g/dL (33.2-36.2); MEAN CORPUSCULAR VOLUME 89.5 fL (81-97); MEAN PLATELET VOLUME 7.9 fL (7.4-10.4); MONOCYTES # (AUTO) 0.52 x10^3/uL (0.2-0.8); MONOCYTES % (AUTO) 6 % (2-9); NEUTROPHILS # (AUTO) 7.09 x10^3/uL (1.8-6.8); NEUTROPHILS % (AUTO) 77 % (42-75); PLATELET COUNT 400 x10^3/uL (130-400); RED BLOOD COUNT 3.37 x10^6/uL (4.38-5.82); RED CELL DISTRIBUTION WIDTH 13.6 % (9.4-14.8)
[2018-09-10 05:43] LABS: CHLORIDE 108 mmol/L (98-107)
[2018-09-10 05:54] LABS: ANION GAP 3 mmol/L (5-15); CALCIUM 8.4 mg/dL (8.5-10.1); CREATININE 0.59 mg/dL (0.7-1.3)
[2018-09-10] MEDS ORDERED: POTASSIUM CHLORIDE 20 MEQ TAB.ER.PRT PO ONE (07:00)
[2018-09-10] MEDS: DOCUSATE 50 MG/5 ML, 10ML UDC PO SCH ×2 (07:39→23:12)
[2018-09-10] MEDS: OXYcodone 5 MG/5 ML ORAL.SOL UDC NG PRN (07:40)
[2018-09-10] MEDS: DAPTOMYCIN 1,000 MG in SODIUM CHLORIDE 0.9% 100 ML IV SCH (08:02)
[2018-09-10 08:40] VITALS: BP 115/79
[2018-09-10] MEDS: SODIUM CHLORIDE FLUSH 10ML SYR IVF SCH ×2 (09:00→20:41)
[2018-09-10] MEDS: INSULIN GLARGINE 100 UNITS/ML, PEN SQ-INSULIN SCH ×2 (09:57→23:12)
[2018-09-10] MEDS: LACTOBACILLUS 1GM/ PACKET PO SCH ×3 (09:58→23:12)
[2018-09-10] MEDS: LISINOPRIL 10 MG TABLET PO SCH ×2 (09:58→23:12)
[2018-09-10 14:00] VITALS: BP 120/75
[2018-09-10 20:34] VITALS: BP 123/76
[2018-09-11 02:50] VITALS: BP 106/63
[2018-09-11] MEDS: CEFTAROLINE 600 MG in SODIUM CHLORIDE 0.9% 100 ML IV SCH (04:23)
[2018-09-11 05:24] LABS: MEAN CORPUSCULAR HEMOGLOBIN 29.8 pg (27.5-34.5); MEAN CORPUSCULAR HGB CONC 33.3 g/dL (33.2-36.2); MEAN CORPUSCULAR VOLUME 89.7 fL (81-97); MEAN PLATELET VOLUME 8.6 fL (7.4-10.4); PLATELET COUNT 400 x10^3/uL (130-400); RED BLOOD COUNT 3.35 x10^6/uL (4.38-5.82); RED CELL DISTRIBUTION WIDTH 13.6 % (9.4-14.8)
[2018-09-11 05:41] LABS: ANION GAP 6 mmol/L (5-15); CALCIUM 8.1 mg/dL (8.5-10.1); CHLORIDE 105 mmol/L (98-107); CREATININE 0.52 mg/dL (0.7-1.3); TRIGLYCERIDES 56 mg/dL (50-200)
[2018-09-11 05:55] LABS: BASOPHILS # (AUTO) 0.06 x10^3/uL (0-0.1); BASOPHILS % (AUTO) 1 % (0-1); EOSINOPHILS # (AUTO) 0.12 x10^3/uL (0-0.4); EOSINOPHILS % (AUTO) 1 % (1-7); LYMPHOCYTES # (AUTO) 1.62 x10^3/uL (1-3.4); LYMPHOCYTES % (AUTO) 17 % (22-44); MD SCAN; MONOCYTES # (AUTO) 0.54 x10^3/uL (0.2-0.8); MONOCYTES % (AUTO) 6 % (2-9); NEUTROPHILS # (AUTO) 7.48 x10^3/uL (1.8-6.8); NEUTROPHILS % (AUTO) 76 % (42-75)
[2018-09-11] MEDS: ENOXAPARIN 30 MG/0.3 ML SQ SCH ×2 (06:33→18:26)
[2018-09-11] MEDS: CARVEDILOL 6.25 MG TABLET PO SCH ×2 (06:34→18:26)
[2018-09-11 06:36] VITALS: BP 120/69
[2018-09-11] MEDS: INSULIN LISPRO 100 UNITS/ML, PEN SQ-INSULIN SCH ×4 (07:00→21:00)
[2018-09-11] MEDS: DAPTOMYCIN 1,000 MG in SODIUM CHLORIDE 0.9% 100 ML IV SCH (08:12)
[2018-09-11] MEDS: LACTOBACILLUS 1GM/ PACKET PO SCH ×3 (08:13→21:31)
[2018-09-11] MEDS: DOCUSATE 50 MG/5 ML, 10ML UDC PO SCH ×2 (08:13→21:00)
[2018-09-11] MEDS: LISINOPRIL 10 MG TABLET PO SCH ×2 (08:13→21:31)
[2018-09-11] MEDS: SODIUM CHLORIDE FLUSH 10ML SYR IVF SCH ×2 (08:24→21:31)
[2018-09-11 08:26] VITALS: BP 99/56
[2018-09-11] MEDS: INSULIN GLARGINE 100 UNITS/ML, PEN SQ-INSULIN SCH ×2 (09:00→21:00)
[2018-09-11 14:16] VITALS: BP 115/64
[2018-09-11 18:27] VITALS: BP 124/64
[2018-09-11 19:00] VITALS: BP 125/71
[2018-09-12 00:38] VITALS: BP 117/73
[2018-09-12 05:16] LABS: BASOPHILS # (AUTO) 0.03 x10^3/uL (0-0.1); BASOPHILS % (AUTO) 0 % (0-1); EOSINOPHILS # (AUTO) 0.09 x10^3/uL (0-0.4); EOSINOPHILS % (AUTO) 1 % (1-7); LYMPHOCYTES % (AUTO) 17 % (22-44); MD NO; MEAN CORPUSCULAR HEMOGLOBIN 30.1 pg (27.5-34.5); MEAN CORPUSCULAR VOLUME 88.5 fL (81-97); MEAN PLATELET VOLUME 7.7 fL (7.4-10.4); MONOCYTES # (AUTO) 0.45 x10^3/uL (0.2-0.8); MONOCYTES % (AUTO) 5 % (2-9); NEUTROPHILS # (AUTO) 6.98 x10^3/uL (1.8-6.8); NEUTROPHILS % (AUTO) 77 % (42-75); PLATELET COUNT 379 x10^3/uL (130-400); RED BLOOD COUNT 3.31 x10^6/uL (4.38-5.82); RED CELL DISTRIBUTION WIDTH 13.4 % (9.4-14.8)
[2018-09-12 05:24] LABS: ANION GAP 6 mmol/L (5-15); CALCIUM 8.1 mg/dL (8.5-10.1); CHLORIDE 105 mmol/L (98-107); CREATININE 0.49 mg/dL (0.7-1.3)
[2018-09-12] MEDS: ENOXAPARIN 30 MG/0.3 ML SQ SCH ×2 (05:44→18:14)
[2018-09-12] MEDS: CARVEDILOL 6.25 MG TABLET PO SCH ×3 (05:45→18:16)
[2018-09-12] MEDS: INSULIN LISPRO 100 UNITS/ML, PEN SQ-INSULIN SCH ×3 (06:48→17:00)
[2018-09-12 07:15] VITALS: BP 136/80
[2018-09-12] MEDS: DOCUSATE 50 MG/5 ML, 10ML UDC PO SCH (07:41)
[2018-09-12] MEDS: LACTOBACILLUS 1GM/ PACKET PO SCH ×2 (08:31→17:00)
[2018-09-12] MEDS: LISINOPRIL 10 MG TABLET PO SCH (08:31)
[2018-09-12] MEDS: SODIUM CHLORIDE FLUSH 10ML SYR IVF SCH (08:32)
[2018-09-12] MEDS: INSULIN GLARGINE 100 UNITS/ML, PEN SQ-INSULIN SCH (08:32)
[2018-09-12] MEDS: DAPTOMYCIN 1,000 MG in SODIUM CHLORIDE 0.9% 100 ML IV SCH (08:49)
[2018-09-12 12:21] VITALS: BP 128/74
[2018-09-12 21:59] VITALS: BP 118/79
[2018-09-13] MEDS: SODIUM CHLORIDE FLUSH 10ML SYR IVF SCH ×3 (00:22→22:15)
[2018-09-13] MEDS: LISINOPRIL 10 MG TABLET PO SCH ×3 (00:22→22:13)
[2018-09-13] MEDS: LACTOBACILLUS 1GM/ PACKET PO SCH ×5 (00:22→22:15)
[2018-09-13] MEDS: DOCUSATE 50 MG/5 ML, 10ML UDC PO SCH ×4 (00:22→22:15)
[2018-09-13] MEDS: INSULIN GLARGINE 100 UNITS/ML, PEN SQ-INSULIN SCH ×3 (00:23→22:15)
[2018-09-13] MEDS: INSULIN LISPRO 100 UNITS/ML, PEN SQ-INSULIN SCH ×5 (00:24→22:16)
[2018-09-13 02:05] LABS: MICROSCOPIC INDICATED
[2018-09-13 05:11] VITALS: BP 124/76
[2018-09-13 07:14] LABS: BASOPHILS # (AUTO) 0.04 x10^3/uL (0-0.1); BASOPHILS % (AUTO) 1 % (0-1); EOSINOPHILS # (AUTO) 0.09 x10^3/uL (0-0.4); EOSINOPHILS % (AUTO) 1 % (1-7); LYMPHOCYTES # (AUTO) 1.51 x10^3/uL (1-3.4); LYMPHOCYTES % (AUTO) 16 % (22-44); MD NO; MEAN CORPUSCULAR HEMOGLOBIN 28.8 pg (27.5-34.5); MEAN CORPUSCULAR HGB CONC 32.8 g/dL (33.2-36.2); MEAN CORPUSCULAR VOLUME 87.9 fL (81-97); MEAN PLATELET VOLUME 7.7 fL (7.4-10.4); MONOCYTES # (AUTO) 0.56 x10^3/uL (0.2-0.8); MONOCYTES % (AUTO) 6 % (2-9); NEUTROPHILS # (AUTO) 7.26 x10^3/uL (1.8-6.8); NEUTROPHILS % (AUTO) 77 % (42-75); PLATELET COUNT 389 x10^3/uL (130-400); RED BLOOD COUNT 3.45 x10^6/uL (4.38-5.82); RED CELL DISTRIBUTION WIDTH 13.7 % (9.4-14.8)
[2018-09-13 07:28] LABS: ANION GAP 4 mmol/L (5-15); CHLORIDE 106 mmol/L (98-107); CREATININE 0.49 mg/dL (0.7-1.3)
[2018-09-13] MEDS: CARVEDILOL 6.25 MG TABLET PO SCH ×2 (07:31→17:57)
[2018-09-13] MEDS: ENOXAPARIN 30 MG/0.3 ML SQ SCH ×2 (07:31→17:54)
[2018-09-13 08:12] VITALS: BP 135/68
[2018-09-13] MEDS: DAPTOMYCIN 1,000 MG in SODIUM CHLORIDE 0.9% 100 ML IV SCH (10:04)
[2018-09-13 14:12] VITALS: BP 129/71
[2018-09-13 17:58] VITALS: BP 136/72
[2018-09-13 21:14] VITALS: BP 129/80
[2018-09-14 02:28] VITALS: BP 123/62
[2018-09-14 05:03] LABS: BASOPHILS # (AUTO) 0.06 x10^3/uL (0-0.1); BASOPHILS % (AUTO) 1 % (0-1); EOSINOPHILS # (AUTO) 0.16 x10^3/uL (0-0.4); EOSINOPHILS % (AUTO) 2 % (1-7); LYMPHOCYTES # (AUTO) 1.81 x10^3/uL (1-3.4); LYMPHOCYTES % (AUTO) 19 % (22-44); MD NO; MEAN CORPUSCULAR HEMOGLOBIN 29.1 pg (27.5-34.5); MEAN CORPUSCULAR HGB CONC 32.9 g/dL (33.2-36.2); MEAN CORPUSCULAR VOLUME 88.4 fL (81-97); MEAN PLATELET VOLUME 8.1 fL (7.4-10.4); MONOCYTES # (AUTO) 0.64 x10^3/uL (0.2-0.8); MONOCYTES % (AUTO) 7 % (2-9); NEUTROPHILS # (AUTO) 7.13 x10^3/uL (1.8-6.8); NEUTROPHILS % (AUTO) 73 % (42-75); PLATELET COUNT 420 x10^3/uL (130-400); RED BLOOD COUNT 3.34 x10^6/uL (4.38-5.82); RED CELL DISTRIBUTION WIDTH 13.7 % (9.4-14.8)
[2018-09-14 05:07] LABS: ANION GAP 6 mmol/L (5-15); CALCIUM 8.2 mg/dL (8.5-10.1); CHLORIDE 106 mmol/L (98-107); CREATININE 0.52 mg/dL (0.7-1.3); TRIGLYCERIDES 48 mg/dL (50-200)
[2018-09-14] MEDS: ENOXAPARIN 30 MG/0.3 ML SQ SCH ×2 (05:33→17:57)
[2018-09-14] MEDS: CARVEDILOL 6.25 MG TABLET PO SCH ×2 (05:33→17:59)
[2018-09-14] MEDS: INSULIN LISPRO 100 UNITS/ML, PEN SQ-INSULIN SCH ×4 (07:00→22:52)
[2018-09-14 08:46] VITALS: BP 117/73
[2018-09-14] MEDS: LACTOBACILLUS 1GM/ PACKET PO SCH ×3 (08:50→21:00)
[2018-09-14] MEDS: LISINOPRIL 10 MG TABLET PO SCH ×2 (08:50→22:50)
[2018-09-14] MEDS: INSULIN GLARGINE 100 UNITS/ML, PEN SQ-INSULIN SCH ×2 (08:51→22:51)
[2018-09-14] MEDS: SODIUM CHLORIDE FLUSH 10ML SYR IVF SCH ×2 (08:51→22:51)
[2018-09-14] MEDS: DOCUSATE 50 MG/5 ML, 10ML UDC PO SCH ×2 (08:53→21:00)
[2018-09-14] MEDS: DAPTOMYCIN 1,000 MG in SODIUM CHLORIDE 0.9% 100 ML IV SCH (10:24)
[2018-09-14 14:17] VITALS: BP 122/70
[2018-09-14] MEDS: OXYcodone 5 MG/5 ML ORAL.SOL UDC NG PRN ×2 (16:40→22:50)
[2018-09-14 17:53] VITALS: BP 115/74
[2018-09-15] MEDS: OXYcodone 5 MG/5 ML ORAL.SOL UDC NG PRN ×5 (00:31→22:41)
[2018-09-15 03:37] VITALS: BP 125/63
[2018-09-15 05:46] LABS: HCT (SEDRATE) 31.2 % (39.2-51.8)
[2018-09-15 05:52] LABS: BASOPHILS # (AUTO) 0.07 x10^3/uL (0-0.1); BASOPHILS % (AUTO) 1 % (0-1); EOSINOPHILS # (AUTO) 0.17 x10^3/uL (0-0.4); EOSINOPHILS % (AUTO) 2 % (1-7); LYMPHOCYTES # (AUTO) 2.02 x10^3/uL (1-3.4); LYMPHOCYTES % (AUTO) 21 % (22-44); MD NO; MEAN CORPUSCULAR HEMOGLOBIN 29.8 pg (27.5-34.5); MEAN CORPUSCULAR HGB CONC 33.5 g/dL (33.2-36.2); MEAN CORPUSCULAR VOLUME 88.8 fL (81-97); MEAN PLATELET VOLUME 7.7 fL (7.4-10.4); MONOCYTES # (AUTO) 0.47 x10^3/uL (0.2-0.8); MONOCYTES % (AUTO) 5 % (2-9); NEUTROPHILS # (AUTO) 6.85 x10^3/uL (1.8-6.8); NEUTROPHILS % (AUTO) 72 % (42-75); PLATELET COUNT 404 x10^3/uL (130-400); RED BLOOD COUNT 3.51 x10^6/uL (4.38-5.82); RED CELL DISTRIBUTION WIDTH 13.4 % (9.4-14.8)
[2018-09-15 06:02] LABS: CHLORIDE 103 mmol/L (98-107)
[2018-09-15 06:17] LABS: ALANINE AMINOTRANSFERASE 26 U/L (12-78); ALBUMIN 1.6 g/dL (3.4-5.0); ALKALINE PHOSPHATASE 87 U/L (45-117); ANION GAP 6 mmol/L (5-15); BILIRUBIN,TOTAL 0.3 mg/dL (0.2-1.0); CALCIUM 8.3 mg/dL (8.5-10.1); CREATININE 0.49 mg/dL (0.7-1.3); TOTAL PROTEIN 7.7 g/dL (6.4-8.2)
[2018-09-15] MEDS: INSULIN LISPRO 100 UNITS/ML, PEN SQ-INSULIN SCH ×4 (06:24→21:29)
[2018-09-15] MEDS: ENOXAPARIN 30 MG/0.3 ML SQ SCH ×2 (06:42→18:06)
[2018-09-15] MEDS: CARVEDILOL 6.25 MG TABLET PO SCH ×2 (06:42→18:05)
[2018-09-15 08:38] VITALS: BP 108/63
[2018-09-15] MEDS: LACTOBACILLUS 1GM/ PACKET PO SCH ×3 (08:47→21:19)
[2018-09-15] MEDS: DOCUSATE 50 MG/5 ML, 10ML UDC PO SCH ×2 (08:47→21:19)
[2018-09-15] MEDS: SODIUM CHLORIDE FLUSH 10ML SYR IVF SCH ×2 (08:48→22:42)
[2018-09-15] MEDS: LISINOPRIL 10 MG TABLET PO SCH ×2 (08:48→21:30)
[2018-09-15] MEDS: INSULIN GLARGINE 100 UNITS/ML, PEN SQ-INSULIN SCH ×2 (08:50→22:41)
[2018-09-15] MEDS: DAPTOMYCIN 1,000 MG in SODIUM CHLORIDE 0.9% 100 ML IV SCH (10:05)
[2018-09-15 13:22] VITALS: BP 118/68
[2018-09-15 18:04] VITALS: BP 114/63
[2018-09-15 19:12] VITALS: BP 110/68
--- NOTE | 2018-09-15 20:45 | NUR ---
Please perform exercise on green sheet and place position in bed/ chair position at least once daily. Addendum: 09/15/18 at 2045 by RADHA SIM PT Amended: Links added.
[2018-09-15] MEDS: ACETAMINOPHEN 650 MG/20.3 ML UDC NG PRN (21:29)
[2018-09-16 02:38] VITALS: BP 97/54
[2018-09-16 05:31] LABS: BASOPHILS # (AUTO) 0.08 x10^3/uL (0-0.1); BASOPHILS % (AUTO) 1 % (0-1); EOSINOPHILS # (AUTO) 0.22 x10^3/uL (0-0.4); EOSINOPHILS % (AUTO) 2 % (1-7); LYMPHOCYTES # (AUTO) 1.83 x10^3/uL (1-3.4); LYMPHOCYTES % (AUTO) 16 % (22-44); MD NO; MEAN CORPUSCULAR HEMOGLOBIN 29.2 pg (27.5-34.5); MEAN CORPUSCULAR VOLUME 88.5 fL (81-97); MEAN PLATELET VOLUME 7.4 fL (7.4-10.4); MONOCYTES # (AUTO) 0.72 x10^3/uL (0.2-0.8); MONOCYTES % (AUTO) 6 % (2-9); NEUTROPHILS % (AUTO) 75 % (42-75); PLATELET COUNT 392 x10^3/uL (130-400); RED BLOOD COUNT 3.44 x10^6/uL (4.38-5.82); RED CELL DISTRIBUTION WIDTH 13.8 % (9.4-14.8)
[2018-09-16 05:42] LABS: CHLORIDE 100 mmol/L (98-107)
[2018-09-16 05:57] LABS: ALANINE AMINOTRANSFERASE 23 U/L (12-78); ALBUMIN 1.7 g/dL (3.4-5.0); ALKALINE PHOSPHATASE 98 U/L (45-117); ANION GAP 6 mmol/L (5-15); BILIRUBIN,TOTAL 0.3 mg/dL (0.2-1.0); CALCIUM 8.6 mg/dL (8.5-10.1); CREATINE KINASE, TOTAL 143 U/L (39-308); CREATININE 0.59 mg/dL (0.7-1.3); TOTAL PROTEIN 7.8 g/dL (6.4-8.2)
[2018-09-16] MEDS: CARVEDILOL 6.25 MG TABLET PO SCH ×2 (06:00→17:49)
[2018-09-16] MEDS: INSULIN LISPRO 100 UNITS/ML, PEN SQ-INSULIN SCH ×4 (06:36→22:28)
[2018-09-16 06:49] VITALS: BP 118/62
[2018-09-16 06:49] LABS: HCT (SEDRATE) 30.4 % (39.2-51.8)
[2018-09-16] MEDS: OXYcodone 5 MG/5 ML ORAL.SOL UDC NG PRN ×4 (07:13→21:10)
[2018-09-16] MEDS: DOCUSATE 50 MG/5 ML, 10ML UDC PO SCH ×2 (09:00→21:10)
[2018-09-16] MEDS: SODIUM CHLORIDE FLUSH 10ML SYR IVF SCH ×2 (09:00→22:28)
[2018-09-16] MEDS: DAPTOMYCIN 1,000 MG in SODIUM CHLORIDE 0.9% 100 ML IV SCH (10:50)
[2018-09-16] MEDS: INSULIN GLARGINE 100 UNITS/ML, PEN SQ-INSULIN SCH ×2 (10:51→23:15)
[2018-09-16] MEDS: LISINOPRIL 10 MG TABLET PO SCH ×2 (10:51→21:10)
[2018-09-16] MEDS: LACTOBACILLUS 1GM/ PACKET PO SCH ×3 (10:51→21:10)
[2018-09-16 11:00] VITALS: BP 116/67
[2018-09-16 12:30] VITALS: BP 118/68
[2018-09-16] MEDS: ACETAMINOPHEN 650 MG/20.3 ML UDC NG PRN (15:18)
[2018-09-16 20:42] VITALS: BP 114/62
[2018-09-17 01:51] VITALS: BP 144/69
[2018-09-17 05:50] LABS: ANION GAP 7 mmol/L (5-15); CALCIUM 8.3 mg/dL (8.5-10.1); CHLORIDE 97 mmol/L (98-107)
[2018-09-17 05:52] LABS: CREATININE 0.53 mg/dL (0.7-1.3); TRIGLYCERIDES 60 mg/dL (50-200)
[2018-09-17] MEDS: OXYcodone 5 MG/5 ML ORAL.SOL UDC NG PRN ×4 (05:54→20:35)
[2018-09-17] MEDS: INSULIN LISPRO 100 UNITS/ML, PEN SQ-INSULIN SCH ×4 (05:54→20:33)
[2018-09-17] MEDS: CARVEDILOL 6.25 MG TABLET PO SCH ×2 (05:54→16:44)
[2018-09-17 05:59] LABS: BASOPHILS # (AUTO) 0.09 x10^3/uL (0-0.1); BASOPHILS % (AUTO) 1 % (0-1); EOSINOPHILS # (AUTO) 0.17 x10^3/uL (0-0.4); EOSINOPHILS % (AUTO) 2 % (1-7); LYMPHOCYTES # (AUTO) 2.03 x10^3/uL (1-3.4); LYMPHOCYTES % (AUTO) 18 % (22-44); MD NO; MEAN CORPUSCULAR HEMOGLOBIN 29.2 pg (27.5-34.5); MEAN CORPUSCULAR HGB CONC 33.2 g/dL (33.2-36.2); MEAN PLATELET VOLUME 7.6 fL (7.4-10.4); MONOCYTES # (AUTO) 0.36 x10^3/uL (0.2-0.8); MONOCYTES % (AUTO) 3 % (2-9); NEUTROPHILS # (AUTO) 8.88 x10^3/uL (1.8-6.8); NEUTROPHILS % (AUTO) 77 % (42-75); PLATELET COUNT 415 x10^3/uL (130-400); RED BLOOD COUNT 3.32 x10^6/uL (4.38-5.82); RED CELL DISTRIBUTION WIDTH 13.4 % (9.4-14.8)
[2018-09-17] MEDS: LACTOBACILLUS 1GM/ PACKET PO SCH ×3 (10:15→20:35)
[2018-09-17] MEDS: DOCUSATE 50 MG/5 ML, 10ML UDC PO SCH ×2 (10:15→20:37)
[2018-09-17] MEDS: DAPTOMYCIN 1,000 MG in SODIUM CHLORIDE 0.9% 100 ML IV SCH (10:16)
[2018-09-17] MEDS: INSULIN GLARGINE 100 UNITS/ML, PEN SQ-INSULIN SCH ×2 (10:16→22:31)
[2018-09-17] MEDS: LISINOPRIL 10 MG TABLET PO SCH ×2 (10:16→20:35)
[2018-09-17] MEDS: SODIUM CHLORIDE FLUSH 10ML SYR IVF SCH ×2 (10:17→20:37)
[2018-09-17] MEDS: ACETAMINOPHEN 650 MG/20.3 ML UDC NG PRN (12:18)
[2018-09-17 15:21] VITALS: BP 109/70
[2018-09-17 19:46] VITALS: BP 110/71
[2018-09-18] MEDS: OXYcodone 5 MG/5 ML ORAL.SOL UDC NG PRN ×5 (01:04→20:49)
[2018-09-18 01:52] VITALS: BP 112/68
[2018-09-18 05:24] LABS: BASOPHILS # (AUTO) 0.08 x10^3/uL (0-0.1); BASOPHILS % (AUTO) 1 % (0-1); EOSINOPHILS # (AUTO) 0.23 x10^3/uL (0-0.4); EOSINOPHILS % (AUTO) 2 % (1-7); LYMPHOCYTES # (AUTO) 1.92 x10^3/uL (1-3.4); LYMPHOCYTES % (AUTO) 15 % (22-44); MD NO; MEAN CORPUSCULAR HEMOGLOBIN 28.8 pg (27.5-34.5); MEAN CORPUSCULAR HGB CONC 32.8 g/dL (33.2-36.2); MEAN PLATELET VOLUME 7.5 fL (7.4-10.4); MONOCYTES # (AUTO) 0.61 x10^3/uL (0.2-0.8); MONOCYTES % (AUTO) 5 % (2-9); NEUTROPHILS # (AUTO) 10.16 x10^3/uL (1.8-6.8); NEUTROPHILS % (AUTO) 78 % (42-75); PLATELET COUNT 434 x10^3/uL (130-400); RED BLOOD COUNT 3.52 x10^6/uL (4.38-5.82); RED CELL DISTRIBUTION WIDTH 13.5 % (9.4-14.8)
[2018-09-18 05:30] LABS: ANION GAP 4 mmol/L (5-15); CALCIUM 8.5 mg/dL (8.5-10.1); CHLORIDE 96 mmol/L (98-107); CREATININE 0.55 mg/dL (0.7-1.3)
[2018-09-18 05:40] LABS: MICROSCOPIC AUTO
[2018-09-18 05:42] LABS: CULTURE INDICATED? YES
[2018-09-18] MEDS: INSULIN LISPRO 100 UNITS/ML, PEN SQ-INSULIN SCH ×4 (06:10→20:19)
[2018-09-18] MEDS: CARVEDILOL 6.25 MG TABLET PO SCH ×2 (06:20→17:46)
[2018-09-18 08:44] VITALS: BP 108/63
[2018-09-18] MEDS: DOCUSATE 50 MG/5 ML, 10ML UDC PO SCH ×2 (09:00→20:20)
[2018-09-18] MEDS: SODIUM CHLORIDE FLUSH 10ML SYR IVF SCH ×2 (09:00→20:18)
[2018-09-18] MEDS: LACTOBACILLUS 1GM/ PACKET PO SCH ×3 (09:44→20:18)
[2018-09-18] MEDS: LISINOPRIL 10 MG TABLET PO SCH ×2 (09:44→21:00)
[2018-09-18] MEDS: INSULIN GLARGINE 100 UNITS/ML, PEN SQ-INSULIN SCH ×2 (09:54→20:19)
[2018-09-18] MEDS: DAPTOMYCIN 1,000 MG in SODIUM CHLORIDE 0.9% 100 ML IV SCH (10:31)
[2018-09-18] MEDS: CEFTRIAXONE PMX 2GM/50ML 50 ML IV SCH (11:45)
[2018-09-18 13:12] VITALS: BP 119/66
[2018-09-18] MEDS: ACETAMINOPHEN 650 MG/20.3 ML UDC NG PRN (17:45)
[2018-09-18 17:48] VITALS: BP 106/65
[2018-09-18 18:55] VITALS: BP 101/63
[2018-09-19] MEDS: OXYcodone 5 MG/5 ML ORAL.SOL UDC NG PRN ×5 (01:40→21:01)
[2018-09-19 01:51] VITALS: BP 113/68
[2018-09-19 05:48] LABS: BASOPHILS # (AUTO) 0.06 x10^3/uL (0-0.1); BASOPHILS % (AUTO) 1 % (0-1); EOSINOPHILS # (AUTO) 0.21 x10^3/uL (0-0.4); EOSINOPHILS % (AUTO) 2 % (1-7); LYMPHOCYTES # (AUTO) 1.48 x10^3/uL (1-3.4); LYMPHOCYTES % (AUTO) 15 % (22-44); MD NO; MEAN CORPUSCULAR HEMOGLOBIN 29.7 pg (27.5-34.5); MEAN CORPUSCULAR VOLUME 87.3 fL (81-97); MEAN PLATELET VOLUME 7.4 fL (7.4-10.4); MONOCYTES # (AUTO) 0.56 x10^3/uL (0.2-0.8); MONOCYTES % (AUTO) 6 % (2-9); NEUTROPHILS # (AUTO) 7.76 x10^3/uL (1.8-6.8); NEUTROPHILS % (AUTO) 77 % (42-75); PLATELET COUNT 372 x10^3/uL (130-400); RED BLOOD COUNT 3.22 x10^6/uL (4.38-5.82); RED CELL DISTRIBUTION WIDTH 13.4 % (9.4-14.8)
[2018-09-19 05:55] LABS: ANION GAP 3 mmol/L (5-15); CALCIUM 8.6 mg/dL (8.5-10.1); CHLORIDE 97 mmol/L (98-107); CREATININE 0.53 mg/dL (0.7-1.3)
[2018-09-19] MEDS: CARVEDILOL 6.25 MG TABLET PO SCH ×2 (06:16→18:19)
[2018-09-19] MEDS: SODIUM CHLORIDE FLUSH 10ML SYR IVF SCH ×2 (07:54→21:01)
[2018-09-19] MEDS: LACTOBACILLUS 1GM/ PACKET PO SCH ×3 (07:54→21:01)
[2018-09-19] MEDS: INSULIN LISPRO 100 UNITS/ML, PEN SQ-INSULIN SCH ×4 (07:54→20:49)
[2018-09-19] MEDS: DOCUSATE 50 MG/5 ML, 10ML UDC PO SCH ×2 (07:54→21:00)
[2018-09-19] MEDS: INSULIN GLARGINE 100 UNITS/ML, PEN SQ-INSULIN SCH ×2 (07:55→21:02)
[2018-09-19] MEDS: LISINOPRIL 10 MG TABLET PO SCH ×2 (07:55→21:01)
[2018-09-19 08:02] VITALS: BP 108/60
[2018-09-19] MEDS: DAPTOMYCIN 1,000 MG in SODIUM CHLORIDE 0.9% 100 ML IV SCH (10:23)
[2018-09-19] MEDS: CEFTRIAXONE PMX 2GM/50ML 50 ML IV SCH (12:00)
[2018-09-19 13:56] VITALS: BP 117/66
[2018-09-19 18:10] LABS: MICROSCOPIC INDICATED
[2018-09-19 18:19] VITALS: BP 114/72
[2018-09-19 18:53] VITALS: BP 104/63
[2018-09-19] MEDS: ACETAMINOPHEN 650 MG/20.3 ML UDC NG PRN (21:54)
[2018-09-20 00:41] VITALS: BP 113/69
[2018-09-20] MEDS: OXYcodone 5 MG/5 ML ORAL.SOL UDC NG PRN ×5 (02:13→21:19)
[2018-09-20 05:33] LABS: BASOPHILS # (AUTO) 0.06 x10^3/uL (0-0.1); BASOPHILS % (AUTO) 1 % (0-1); EOSINOPHILS % (AUTO) 2 % (1-7); LYMPHOCYTES # (AUTO) 1.72 x10^3/uL (1-3.4); LYMPHOCYTES % (AUTO) 20 % (22-44); MD NO; MEAN CORPUSCULAR HGB CONC 32.9 g/dL (33.2-36.2); MEAN CORPUSCULAR VOLUME 87.9 fL (81-97); MEAN PLATELET VOLUME 7.2 fL (7.4-10.4); MONOCYTES # (AUTO) 0.54 x10^3/uL (0.2-0.8); MONOCYTES % (AUTO) 6 % (2-9); NEUTROPHILS # (AUTO) 6.22 x10^3/uL (1.8-6.8); NEUTROPHILS % (AUTO) 71 % (42-75); PLATELET COUNT 370 x10^3/uL (130-400); RED CELL DISTRIBUTION WIDTH 13.5 % (9.4-14.8)
[2018-09-20 05:38] LABS: CHLORIDE 97 mmol/L (98-107)
[2018-09-20 05:42] LABS: CALCIUM 8.8 mg/dL (8.5-10.1); CREATININE 0.49 mg/dL (0.7-1.3); TRIGLYCERIDES 72 mg/dL (50-200)
[2018-09-20 06:24] LABS: ANION GAP 5 mmol/L (5-15)
[2018-09-20] MEDS: CARVEDILOL 6.25 MG TABLET PO SCH ×2 (06:27→18:07)
[2018-09-20 08:20] VITALS: BP 118/76
[2018-09-20] MEDS: ACETAMINOPHEN 650 MG/20.3 ML UDC NG PRN ×2 (08:21→16:05)
[2018-09-20] MEDS: LISINOPRIL 10 MG TABLET PO SCH ×2 (08:22→20:30)
[2018-09-20] MEDS: DOCUSATE 50 MG/5 ML, 10ML UDC PO SCH ×2 (08:22→19:40)
[2018-09-20] MEDS: LACTOBACILLUS 1GM/ PACKET PO SCH ×3 (08:22→20:30)
[2018-09-20] MEDS: SODIUM CHLORIDE FLUSH 10ML SYR IVF SCH ×2 (08:22→20:31)
[2018-09-20] MEDS: INSULIN GLARGINE 100 UNITS/ML, PEN SQ-INSULIN SCH ×2 (08:23→20:31)
[2018-09-20] MEDS: INSULIN LISPRO 100 UNITS/ML, PEN SQ-INSULIN SCH ×4 (08:23→20:30)
[2018-09-20] MEDS: DAPTOMYCIN 1,000 MG in SODIUM CHLORIDE 0.9% 100 ML IV SCH (11:04)
[2018-09-20] MEDS: CEFTRIAXONE PMX 2GM/50ML 50 ML IV SCH (11:48)
[2018-09-20 13:40] VITALS: BP 117/74
[2018-09-20 18:08] VITALS: BP 124/76
[2018-09-20 20:57] VITALS: BP 122/75
[2018-09-21 03:13] VITALS: BP 125/68
[2018-09-21] MEDS: OXYcodone 5 MG/5 ML ORAL.SOL UDC NG PRN ×4 (03:27→21:19)
[2018-09-21 05:30] LABS: BASOPHILS # (AUTO) 0.07 x10^3/uL (0-0.1); BASOPHILS % (AUTO) 1 % (0-1); EOSINOPHILS # (AUTO) 0.16 x10^3/uL (0-0.4); EOSINOPHILS % (AUTO) 2 % (1-7); LYMPHOCYTES # (AUTO) 1.71 x10^3/uL (1-3.4); LYMPHOCYTES % (AUTO) 18 % (22-44); MD NO; MEAN CORPUSCULAR HEMOGLOBIN 29.4 pg (27.5-34.5); MEAN CORPUSCULAR HGB CONC 33.8 g/dL (33.2-36.2); MEAN PLATELET VOLUME 7.4 fL (7.4-10.4); MONOCYTES # (AUTO) 0.65 x10^3/uL (0.2-0.8); MONOCYTES % (AUTO) 7 % (2-9); NEUTROPHILS % (AUTO) 73 % (42-75); PLATELET COUNT 399 x10^3/uL (130-400); RED BLOOD COUNT 3.52 x10^6/uL (4.38-5.82); RED CELL DISTRIBUTION WIDTH 13.6 % (9.4-14.8)
[2018-09-21 05:36] LABS: ANION GAP 5 mmol/L (5-15); CALCIUM 8.8 mg/dL (8.5-10.1); CHLORIDE 97 mmol/L (98-107)
[2018-09-21 05:38] LABS: CREATININE 0.49 mg/dL (0.7-1.3)
[2018-09-21] MEDS: CARVEDILOL 6.25 MG TABLET PO SCH ×2 (06:17→17:17)
[2018-09-21] MEDS: ACETAMINOPHEN 650 MG/20.3 ML UDC NG PRN ×2 (06:17→21:19)
[2018-09-21] MEDS: LACTOBACILLUS 1GM/ PACKET PO SCH ×3 (08:30→21:19)
[2018-09-21] MEDS: LISINOPRIL 10 MG TABLET PO SCH ×2 (08:31→21:19)
[2018-09-21] MEDS: DOCUSATE 50 MG/5 ML, 10ML UDC PO SCH ×2 (08:31→20:48)
[2018-09-21] MEDS: SODIUM CHLORIDE FLUSH 10ML SYR IVF SCH ×2 (08:31→21:19)
[2018-09-21] MEDS: INSULIN LISPRO 100 UNITS/ML, PEN SQ-INSULIN SCH ×4 (08:32→21:20)
[2018-09-21] MEDS: INSULIN GLARGINE 100 UNITS/ML, PEN SQ-INSULIN SCH ×2 (08:32→21:20)
[2018-09-21 08:34] VITALS: BP 105/65
[2018-09-21] MEDS: DAPTOMYCIN 1,000 MG in SODIUM CHLORIDE 0.9% 100 ML IV SCH (11:20)
[2018-09-21 12:15] VITALS: BP 128/79
[2018-09-21] MEDS: CEFTRIAXONE PMX 2GM/50ML 50 ML IV SCH (12:27)
[2018-09-21 17:15] VITALS: BP 118/69
[2018-09-21 19:49] VITALS: BP 117/69
[2018-09-22] MEDS: OXYcodone 5 MG/5 ML ORAL.SOL UDC NG PRN ×5 (01:22→19:00)
[2018-09-22 02:00] VITALS: BP 117/77
[2018-09-22] MEDS: CARVEDILOL 6.25 MG TABLET PO SCH ×2 (05:20→18:18)
[2018-09-22 05:23] LABS: BASOPHILS # (AUTO) 0.05 x10^3/uL (0-0.1); BASOPHILS % (AUTO) 1 % (0-1); EOSINOPHILS # (AUTO) 0.23 x10^3/uL (0-0.4); EOSINOPHILS % (AUTO) 2 % (1-7); LYMPHOCYTES # (AUTO) 1.99 x10^3/uL (1-3.4); LYMPHOCYTES % (AUTO) 20 % (22-44); MD NO; MEAN CORPUSCULAR HEMOGLOBIN 29.5 pg (27.5-34.5); MEAN CORPUSCULAR VOLUME 86.8 fL (81-97); MONOCYTES # (AUTO) 0.68 x10^3/uL (0.2-0.8); MONOCYTES % (AUTO) 7 % (2-9); NEUTROPHILS # (AUTO) 7.28 x10^3/uL (1.8-6.8); NEUTROPHILS % (AUTO) 71 % (42-75); PLATELET COUNT 364 x10^3/uL (130-400); RED CELL DISTRIBUTION WIDTH 13.6 % (9.4-14.8)
[2018-09-22 05:34] LABS: ANION GAP 4 mmol/L (5-15); CALCIUM 8.7 mg/dL (8.5-10.1); CHLORIDE 99 mmol/L (98-107); CREATININE 0.55 mg/dL (0.7-1.3)
[2018-09-22] MEDS: INSULIN LISPRO 100 UNITS/ML, PEN SQ-INSULIN SCH ×4 (07:00→20:17)
[2018-09-22 07:56] VITALS: BP 119/70
[2018-09-22] MEDS: DOCUSATE 50 MG/5 ML, 10ML UDC PO SCH ×2 (09:00→20:08)
[2018-09-22] MEDS: INSULIN GLARGINE 100 UNITS/ML, PEN SQ-INSULIN SCH ×2 (09:18→20:18)
[2018-09-22] MEDS: LISINOPRIL 10 MG TABLET PO SCH ×2 (09:18→20:08)
[2018-09-22] MEDS: SODIUM CHLORIDE FLUSH 10ML SYR IVF SCH ×2 (09:19→20:08)
[2018-09-22] MEDS: LACTOBACILLUS 1GM/ PACKET PO SCH ×3 (09:37→20:08)
[2018-09-22] MEDS: DAPTOMYCIN 1,000 MG in SODIUM CHLORIDE 0.9% 100 ML IV SCH (11:23)
[2018-09-22 13:06] VITALS: BP 114/73
[2018-09-22 19:33] VITALS: BP 116/71
[2018-09-22] MEDS: ACETAMINOPHEN 650 MG/20.3 ML UDC NG PRN (20:29)
[2018-09-23] MEDS: OXYcodone 5 MG/5 ML ORAL.SOL UDC NG PRN ×5 (00:10→23:11)
[2018-09-23 02:04] VITALS: BP 129/73
[2018-09-23 05:50] LABS: CHLORIDE 98 mmol/L (98-107)
[2018-09-23 06:11] LABS: ALANINE AMINOTRANSFERASE 23 U/L (12-78); ALBUMIN 2.1 g/dL (3.4-5.0); ALKALINE PHOSPHATASE 157 U/L (45-117); ANION GAP 7 mmol/L (5-15); BILIRUBIN,TOTAL 0.3 mg/dL (0.2-1.0); CALCIUM 9.1 mg/dL (8.5-10.1); CREATINE KINASE, TOTAL 64 U/L (39-308); CREATININE 0.56 mg/dL (0.7-1.3); TOTAL PROTEIN 9.6 g/dL (6.4-8.2); TRIGLYCERIDES 67 mg/dL (50-200)
[2018-09-23] MEDS: CARVEDILOL 6.25 MG TABLET PO SCH ×2 (06:36→18:42)
[2018-09-23 06:46] VITALS: BP 128/73
[2018-09-23 06:46] LABS: HCT (SEDRATE) 30.2 % (39.2-51.8)
[2018-09-23 06:47] LABS: BASOPHILS # (AUTO) 0.06 x10^3/uL (0-0.1); BASOPHILS % (AUTO) 1 % (0-1); EOSINOPHILS # (AUTO) 0.27 x10^3/uL (0-0.4); EOSINOPHILS % (AUTO) 3 % (1-7); LYMPHOCYTES # (AUTO) 1.78 x10^3/uL (1-3.4); LYMPHOCYTES % (AUTO) 17 % (22-44); MD NO; MEAN CORPUSCULAR HGB CONC 33.4 g/dL (33.2-36.2); MEAN CORPUSCULAR VOLUME 86.9 fL (81-97); MEAN PLATELET VOLUME 6.4 fL (7.4-10.4); MONOCYTES # (AUTO) 0.71 x10^3/uL (0.2-0.8); MONOCYTES % (AUTO) 7 % (2-9); NEUTROPHILS # (AUTO) 7.85 x10^3/uL (1.8-6.8); NEUTROPHILS % (AUTO) 74 % (42-75); PLATELET COUNT 399 x10^3/uL (130-400); RED BLOOD COUNT 3.47 x10^6/uL (4.38-5.82); RED CELL DISTRIBUTION WIDTH 13.6 % (9.4-14.8)
[2018-09-23 07:23] LABS: SEDIMENTATION RATE > 120 mm/hr (0-10)
[2018-09-23] MEDS: INSULIN GLARGINE 100 UNITS/ML, PEN SQ-INSULIN SCH ×2 (08:13→21:28)
[2018-09-23] MEDS: INSULIN LISPRO 100 UNITS/ML, PEN SQ-INSULIN SCH ×4 (08:13→21:28)
[2018-09-23] MEDS: LACTOBACILLUS 1GM/ PACKET PO SCH ×3 (08:14→21:22)
[2018-09-23] MEDS: LISINOPRIL 10 MG TABLET PO SCH ×2 (08:14→21:22)
[2018-09-23] MEDS: DOCUSATE 50 MG/5 ML, 10ML UDC PO SCH ×2 (08:14→21:00)
[2018-09-23] MEDS: SODIUM CHLORIDE FLUSH 10ML SYR IVF SCH ×2 (09:00→21:22)
[2018-09-23] MEDS: DAPTOMYCIN 1,000 MG in SODIUM CHLORIDE 0.9% 100 ML IV SCH (11:02)
[2018-09-23 12:55] VITALS: BP 136/68
[2018-09-23 19:40] VITALS: BP 132/80
[2018-09-24] MEDS: ACETAMINOPHEN 650 MG/20.3 ML UDC NG PRN ×2 (00:57→22:19)
[2018-09-24 01:22] VITALS: BP 109/69
[2018-09-24] MEDS: OXYcodone 5 MG/5 ML ORAL.SOL UDC NG PRN ×5 (03:15→22:19)
[2018-09-24 05:21] LABS: BASOPHILS # (AUTO) 0.05 x10^3/uL (0-0.1); BASOPHILS % (AUTO) 1 % (0-1); EOSINOPHILS % (AUTO) 3 % (1-7); LYMPHOCYTES % (AUTO) 20 % (22-44); MD NO; MEAN CORPUSCULAR HEMOGLOBIN 28.3 pg (27.5-34.5); MEAN CORPUSCULAR HGB CONC 32.4 g/dL (33.2-36.2); MEAN CORPUSCULAR VOLUME 87.2 fL (81-97); MEAN PLATELET VOLUME 6.9 fL (7.4-10.4); MONOCYTES # (AUTO) 0.74 x10^3/uL (0.2-0.8); MONOCYTES % (AUTO) 7 % (2-9); NEUTROPHILS # (AUTO) 7.08 x10^3/uL (1.8-6.8); NEUTROPHILS % (AUTO) 69 % (42-75); PLATELET COUNT 364 x10^3/uL (130-400); RED CELL DISTRIBUTION WIDTH 13.5 % (9.4-14.8)
[2018-09-24 05:27] LABS: ANION GAP 8 mmol/L (5-15); CALCIUM 9.1 mg/dL (8.5-10.1); CHLORIDE 98 mmol/L (98-107)
[2018-09-24 05:29] LABS: CREATININE 0.54 mg/dL (0.7-1.3)
[2018-09-24] MEDS: CARVEDILOL 6.25 MG TABLET PO SCH ×2 (05:49→17:40)
[2018-09-24 07:42] VITALS: BP 112/67
[2018-09-24] MEDS: INSULIN LISPRO 100 UNITS/ML, PEN SQ-INSULIN SCH ×4 (08:28→21:07)
[2018-09-24] MEDS: DOCUSATE 50 MG/5 ML, 10ML UDC PO SCH ×2 (08:29→21:00)
[2018-09-24] MEDS: SODIUM CHLORIDE FLUSH 10ML SYR IVF SCH ×2 (08:29→20:57)
[2018-09-24] MEDS: LACTOBACILLUS 1GM/ PACKET PO SCH ×3 (08:29→20:57)
[2018-09-24] MEDS: LISINOPRIL 10 MG TABLET PO SCH ×2 (08:29→20:57)
[2018-09-24] MEDS: INSULIN GLARGINE 100 UNITS/ML, PEN SQ-INSULIN SCH ×2 (08:59→21:08)
[2018-09-24] MEDS: DAPTOMYCIN 1,000 MG in SODIUM CHLORIDE 0.9% 100 ML IV SCH (11:23)
[2018-09-24 12:40] VITALS: BP 114/72
[2018-09-24 17:40] VITALS: BP 117/70
[2018-09-24 19:48] VITALS: BP 113/75
[2018-09-25 01:39] VITALS: BP 115/54
[2018-09-25] MEDS: ACETAMINOPHEN 650 MG/20.3 ML UDC NG PRN ×2 (04:54→11:19)
[2018-09-25] MEDS: OXYcodone 5 MG/5 ML ORAL.SOL UDC NG PRN ×4 (04:54→20:53)
[2018-09-25 05:28] LABS: BASOPHILS # (AUTO) 0.02 x10^3/uL (0-0.1); BASOPHILS % (AUTO) 0 % (0-1); EOSINOPHILS # (AUTO) 0.49 x10^3/uL (0-0.4); EOSINOPHILS % (AUTO) 5 % (1-7); LYMPHOCYTES # (AUTO) 1.73 x10^3/uL (1-3.4); LYMPHOCYTES % (AUTO) 16 % (22-44); MD NO; MEAN CORPUSCULAR HEMOGLOBIN 29.4 pg (27.5-34.5); MEAN CORPUSCULAR HGB CONC 33.6 g/dL (33.2-36.2); MEAN CORPUSCULAR VOLUME 87.4 fL (81-97); MEAN PLATELET VOLUME 6.9 fL (7.4-10.4); MONOCYTES # (AUTO) 0.57 x10^3/uL (0.2-0.8); MONOCYTES % (AUTO) 5 % (2-9); NEUTROPHILS # (AUTO) 8.05 x10^3/uL (1.8-6.8); NEUTROPHILS % (AUTO) 74 % (42-75); PLATELET COUNT 374 x10^3/uL (130-400); RED BLOOD COUNT 3.53 x10^6/uL (4.38-5.82); RED CELL DISTRIBUTION WIDTH 13.8 % (9.4-14.8)
[2018-09-25 05:37] LABS: ANION GAP 7 mmol/L (5-15); CALCIUM 8.9 mg/dL (8.5-10.1); CHLORIDE 97 mmol/L (98-107); CREATININE 0.58 mg/dL (0.7-1.3)
[2018-09-25] MEDS: CARVEDILOL 6.25 MG TABLET PO SCH ×2 (05:52→17:06)
[2018-09-25 07:34] VITALS: BP 99/59
[2018-09-25] MEDS: DOCUSATE 50 MG/5 ML, 10ML UDC PO SCH ×4 (07:57→20:59)
[2018-09-25] MEDS: LACTOBACILLUS 1GM/ PACKET PO SCH ×3 (07:57→20:52)
[2018-09-25] MEDS: INSULIN GLARGINE 100 UNITS/ML, PEN SQ-INSULIN SCH ×2 (08:00→21:01)
[2018-09-25] MEDS: LISINOPRIL 10 MG TABLET PO SCH ×2 (08:01→20:53)
[2018-09-25] MEDS: INSULIN LISPRO 100 UNITS/ML, PEN SQ-INSULIN SCH ×4 (08:01→20:58)
[2018-09-25] MEDS: SODIUM CHLORIDE FLUSH 10ML SYR IVF SCH ×2 (08:01→20:52)
[2018-09-25] MEDS: DAPTOMYCIN 1,000 MG in SODIUM CHLORIDE 0.9% 100 ML IV SCH (11:12)
[2018-09-25 13:55] VITALS: BP 95/62
[2018-09-25 19:54] VITALS: BP 116/70
[2018-09-26 00:49] VITALS: BP 114/66
[2018-09-26] MEDS: OXYcodone 5 MG/5 ML ORAL.SOL UDC NG PRN ×4 (02:25→22:13)
[2018-09-26 05:59] LABS: BASOPHILS # (AUTO) 0.08 x10^3/uL (0-0.1); BASOPHILS % (AUTO) 1 % (0-1); EOSINOPHILS # (AUTO) 0.42 x10^3/uL (0-0.4); EOSINOPHILS % (AUTO) 4 % (1-7); LYMPHOCYTES # (AUTO) 1.73 x10^3/uL (1-3.4); LYMPHOCYTES % (AUTO) 16 % (22-44); MD NO; MEAN CORPUSCULAR HEMOGLOBIN 29.4 pg (27.5-34.5); MEAN CORPUSCULAR VOLUME 86.5 fL (81-97); MEAN PLATELET VOLUME 6.9 fL (7.4-10.4); MONOCYTES # (AUTO) 0.54 x10^3/uL (0.2-0.8); MONOCYTES % (AUTO) 5 % (2-9); NEUTROPHILS # (AUTO) 8.08 x10^3/uL (1.8-6.8); NEUTROPHILS % (AUTO) 74 % (42-75); PLATELET COUNT 369 x10^3/uL (130-400); RED BLOOD COUNT 3.73 x10^6/uL (4.38-5.82); RED CELL DISTRIBUTION WIDTH 13.6 % (9.4-14.8)
[2018-09-26] MEDS: CARVEDILOL 6.25 MG TABLET PO SCH ×2 (06:07→16:55)
[2018-09-26 06:12] LABS: ANION GAP 5 mmol/L (5-15); CALCIUM 8.9 mg/dL (8.5-10.1); CHLORIDE 98 mmol/L (98-107)
[2018-09-26 06:14] LABS: CREATININE 0.59 mg/dL (0.7-1.3); TRIGLYCERIDES 57 mg/dL (50-200)
[2018-09-26] MEDS: INSULIN LISPRO 100 UNITS/ML, PEN SQ-INSULIN SCH ×4 (07:00→21:00)
[2018-09-26 07:20] VITALS: BP 113/70
[2018-09-26] MEDS: LACTOBACILLUS 1GM/ PACKET PO SCH ×3 (08:13→21:05)
[2018-09-26] MEDS: LISINOPRIL 10 MG TABLET PO SCH ×2 (08:13→21:05)
[2018-09-26] MEDS: DOCUSATE 50 MG/5 ML, 10ML UDC PO SCH ×2 (08:13→21:05)
[2018-09-26] MEDS: SODIUM CHLORIDE FLUSH 10ML SYR IVF SCH ×2 (08:14→21:04)
[2018-09-26] MEDS: INSULIN GLARGINE 100 UNITS/ML, PEN SQ-INSULIN SCH ×2 (08:14→21:24)
[2018-09-26] MEDS: DAPTOMYCIN 1,000 MG in SODIUM CHLORIDE 0.9% 100 ML IV SCH (11:54)
[2018-09-26 12:29] VITALS: BP 118/76
[2018-09-26 18:52] VITALS: BP 96/62
[2018-09-27 01:58] VITALS: BP 118/71
[2018-09-27] MEDS: OXYcodone 5 MG/5 ML ORAL.SOL UDC NG PRN ×4 (02:29→16:03)
[2018-09-27 02:59] VITALS: BP 113/70
[2018-09-27 05:36] LABS: BASOPHILS # (AUTO) 0.06 x10^3/uL (0-0.1); BASOPHILS % (AUTO) 1 % (0-1); EOSINOPHILS # (AUTO) 0.47 x10^3/uL (0-0.4); EOSINOPHILS % (AUTO) 5 % (1-7); LYMPHOCYTES # (AUTO) 1.65 x10^3/uL (1-3.4); LYMPHOCYTES % (AUTO) 16 % (22-44); MD NO; MEAN CORPUSCULAR HEMOGLOBIN 29.3 pg (27.5-34.5); MEAN CORPUSCULAR HGB CONC 33.6 g/dL (33.2-36.2); MEAN CORPUSCULAR VOLUME 87.2 fL (81-97); MEAN PLATELET VOLUME 6.7 fL (7.4-10.4); MONOCYTES # (AUTO) 0.54 x10^3/uL (0.2-0.8); MONOCYTES % (AUTO) 5 % (2-9); NEUTROPHILS % (AUTO) 74 % (42-75); PLATELET COUNT 370 x10^3/uL (130-400); RED BLOOD COUNT 3.55 x10^6/uL (4.38-5.82); RED CELL DISTRIBUTION WIDTH 14.1 % (9.4-14.8)
[2018-09-27 05:47] LABS: ANION GAP 6 mmol/L (5-15); CALCIUM 8.8 mg/dL (8.5-10.1); CHLORIDE 98 mmol/L (98-107)
[2018-09-27 05:48] LABS: CREATININE 0.53 mg/dL (0.7-1.3)
[2018-09-27] MEDS: CARVEDILOL 6.25 MG TABLET PO SCH (06:05)
[2018-09-27] MEDS: INSULIN LISPRO 100 UNITS/ML, PEN SQ-INSULIN SCH ×3 (07:00→16:02)
[2018-09-27 07:02] VITALS: BP 98/64
[2018-09-27] MEDS: SODIUM CHLORIDE FLUSH 10ML SYR IVF SCH (08:58)
[2018-09-27] MEDS: LACTOBACILLUS 1GM/ PACKET PO SCH ×2 (08:58→16:02)
[2018-09-27] MEDS: DOCUSATE 50 MG/5 ML, 10ML UDC PO SCH (08:58)
[2018-09-27] MEDS: INSULIN GLARGINE 100 UNITS/ML, PEN SQ-INSULIN SCH (08:59)
[2018-09-27] MEDS: LISINOPRIL 10 MG TABLET PO SCH (09:00)
[2018-09-27] MEDS: DAPTOMYCIN 1,000 MG in SODIUM CHLORIDE 0.9% 100 ML IV SCH (11:32)
[2018-09-27 13:49] VITALS: BP 114/74
[2018-09-27] MEDS ORDERED: POLY17PO5 PO (15:52)
[2018-09-27] MEDS ORDERED: FENT50VI IVPush (15:52)
[2018-09-27] MEDS ORDERED: ACID1GRA3 PO (15:52)
[2018-09-27] MEDS ORDERED: INSU100I11 SQ-INSULIN (15:52)
[2018-09-27] MEDS ORDERED: INSU100I13 SQ-INSULIN (15:52)
[2018-09-27] MEDS ORDERED: ACET650S21 NG (15:52)
[2018-09-27] MEDS ORDERED: ALPR0.254 PO (15:52)
[2018-09-27] MEDS ORDERED: LISI-167 PO (15:52)
[2018-09-27] MEDS ORDERED: OXYC5SOL8 NG (15:52)
[2018-09-27] MEDS ORDERED: CARV6.2512 PO (15:52)
[2018-09-27] MEDS ORDERED: BISA10SU54 PR (15:52)
[2018-09-27] MEDS ORDERED: DAPT500V6 IV (15:52)
[2018-09-27] MEDS ORDERED: GLUC1VIA IM (15:52)
[2018-09-27] MEDS ORDERED: DOCU50LI12 PO (15:52)
== END 2018-09-27 17:25 | DRG 853 ==
LOC: ED 13:06 → EDIP 13:13 → 4WST 14:44 → CCU 08-27 19:46 → 4NOR 09-08 15:55
PROVIDERS: ADMIT Internal Medicine; ATTEND Internal Medicine
PROC: 0W9K0ZZ Drainage of Upper Back, Open Approach (ICD-10-PCS; 2018-08-26)
PROC: 5A1945Z Respiratory Ventilation, 24-96 Consecutive Hours (ICD-10-PCS; principal; 2018-09-03)
PROC: 0BH17EZ Insertion of Endotracheal Airway into Trachea, Via Natural or Artificial Opening (ICD-10-PCS; 2018-09-03)
PROC: 0BCB8ZZ Extirpation of Matter from Left Lower Lobe Bronchus, Via Natural or Artificial Opening Endoscopic (ICD-10-PCS; 2018-09-06)
PROC: 0BC58ZZ Extirpation of Matter from Right Middle Lobe Bronchus, Via Natural or Artificial Opening Endoscopic (ICD-10-PCS; 2018-09-06)
PROC: 0BC68ZZ Extirpation of Matter from Right Lower Lobe Bronchus, Via Natural or Artificial Opening Endoscopic (ICD-10-PCS; 2018-09-06)
PROC: 0RB90ZZ Excision of Thoracic Vertebral Disc, Open Approach (ICD-10-PCS; 2018-09-24)
PROC: 009U0ZZ Drainage of Spinal Canal, Open Approach (ICD-10-PCS; 2018-09-24)
DX: A41.02 Sepsis due to Methicillin resistant Staphylococcus aureus (principal); G06.1 Intraspinal abscess and granuloma; G93.41 Metabolic encephalopathy; I26.90 Septic pulmonary embolism without acute cor pulmonale; J18.9 Pneumonia, unspecified organism; J96.01 Acute respiratory failure with hypoxia; N17.0 Acute kidney failure with tubular necrosis; R53.2 Functional quadriplegia; D84.9 Immunodeficiency, unspecified; E87.0 Hyperosmolality and hypernatremia; E87.1 Hypo-osmolality and hyponatremia; E87.2 Acidosis; I76 Septic arterial embolism; J98.11 Atelectasis; L02.212 Cutaneous abscess of back [any part, except buttock and flank]; M46.24 Osteomyelitis of vertebra, thoracic region; N13.6 Pyonephrosis; Z99.11 Dependence on respirator [ventilator] status; R65.20 Severe sepsis without septic shock; E11.65 Type 2 diabetes mellitus with hyperglycemia; E11.69 Type 2 diabetes mellitus with other specified complication; F17.210 Nicotine dependence, cigarettes, uncomplicated; H70.92 Unspecified mastoiditis, left ear; I10 Essential (primary) hypertension; J06.9 Acute upper respiratory infection, unspecified; K76.0 Fatty (change of) liver, not elsewhere classified; M48.04 Spinal stenosis, thoracic region; M48.061 Spinal stenosis, lumbar region without neurogenic claudication; M60.9 Myositis, unspecified; N28.1 Cyst of kidney, acquired; R13.10 Dysphagia, unspecified; Z51.5 Encounter for palliative care; Z79.4 Long term (current) use of insulin; Z83.3 Family history of diabetes mellitus; Z86.61 Personal history of infections of the central nervous system; Z91.14 Patient's other noncompliance with medication regimen
CPT/HCPCS: 36415; 36600; 74230; 84145; J3490; 31624; 70544; 70553; 71045; 71250; 72129; 72156; 72157; 72158; 74177; 76604; 76705; 80048; 80053; 80202; 81001; 82010; 82040; 82550; 82800; 82803; 82962; 83605; 83690; 83735; 83880; 84478; 85025; 85651; 86140; 87015; 87040; 87070; 87075; 87077; 87081; 87086; 87102; 87116; 87147; 87186; 87205; 87206; 90715; 93005; 93306; 93312; 93325; 94002; 94003; 94150; 94640; A9585; G0378; J0690; J0692; J0696; J0712; J0878; J1644; J1650; J1940; J2250; J2405; J2543; J2704; J3010; J3370; J3480; P9047; Q9967; 92523-GN; C9113; J0330; J1815; J7030; J7040; J7050

== ENCOUNTER 2020-09-12 09:37 | Emergency (ER) | payer SELFPAY ==
[~2020-09-12] VITALS: Ht 182.9 cm; Wt 105.0 kg
[~2020-09-12 09:37] MED LIST changes: +ACET650S21 NG; +ACID1GRA3 PO; +ALPR0.254 PO; +BISA10SU54 PR; +CARV6.2512 PO; +DAPT500V6 IV; +DOCU50LI26 PO; +FENT50VI28 IVPush; +GLUC1VIA5 IM; +INSU100I11 SQ-INSULIN; +INSU100I13 SQ-INSULIN; +LISI-167 PO; +OXYC5SOL8 NG; +POLY17PO5 PO
--- NOTE | 2020-09-12 09:56 | NUR ---
PT HAS CO LEFT SHOULDER PAIN AND LEFT TOE INFECTION. "I SEWED MY OWN TOE UP" PT STATES HE DRANK HEAVILLY LAST NIGHT, PT IS A BINGE DRINKER. CANNOT REMEMBER IF HE FELL OR NOT BUT WOKE WITH EXTREME PAIN TO L SHOULDER AREA. DENIES CP/SOB/DIZZINESS. PT ALSO ARRIVES WITH CHRONIC LLE ULCER TO LONG TOE, APPEARS GANGRENOUS. PT UNAWARE WHEN BUT OLD SUTURES IN PLACE ON TOP OF TOE, PT HAD SEWN IT UP AT SOME POINT.
[2020-09-12 10:27] LABS: ALANINE AMINOTRANSFERASE 31 U/L (12-78); ALBUMIN 3.4 g/dL (3.4-5.0); ANION GAP 11 mmol/L (5-15); CALCIUM 8.5 mg/dL (8.5-10.1); CHLORIDE 104 mmol/L (98-107); CREATININE 0.74 mg/dL (0.7-1.3)
[2020-09-12 10:29] LABS: ALKALINE PHOSPHATASE 109 U/L (45-117); BILIRUBIN,TOTAL 0.3 mg/dL (0.2-1.0); TOTAL PROTEIN 7.5 g/dL (6.4-8.2)
--- NOTE | 2020-09-12 10:30 | NUR ---
PT TO CT AT THIS TIME
[2020-09-12 10:32] LABS: BASOPHILS % (AUTO) 1 % (0-1); EOSINOPHILS % (AUTO) 0 % (1-7); LYMPHOCYTES % (AUTO) 16 % (22-44); MD NO; MEAN CORPUSCULAR HEMOGLOBIN 30.2 pg (27.5-34.5); MEAN PLATELET VOLUME 7.5 fL (7.4-10.4); MONOCYTES % (AUTO) 7 % (2-9); NEUTROPHILS % (AUTO) 76 % (42-75); PLATELET COUNT 222 x10^3/uL (130-400); RED CELL DISTRIBUTION WIDTH 14.3 % (9.4-14.8)
[2020-09-12 11:03] VITALS: BP 156/102
[2020-09-12] MEDS ORDERED: HYDROmorphone 1 MG/ML, 1ML INJ ONE ×2 (11:05→12:09)
[2020-09-12] MEDS: HYDROmorphone 1 MG/ML, 1ML INJ IVPush PRN ×2 (11:09→12:13)
[2020-09-12] MEDS ORDERED: OXYcodone/APAP 10/325MG TABLET PO ONE (12:00)
[2020-09-12] MEDS ORDERED: OXYcodone/APAP 10/325MG TABLET ONE (12:09)
--- NOTE | 2020-09-12 13:12 | NUR ---
BREAK RN- DISCHARGE INSTRUCTIONS REVIEWED
== END 2020-09-12 13:15 | disposition home or self-care (01) ==
LOC: ED 10:04
DX: S42.202A Unspecified fracture of upper end of left humerus, initial encounter for closed fracture (principal); M86.8X7 Other osteomyelitis, ankle and foot; E11.52 Type 2 diabetes mellitus with diabetic peripheral angiopathy with gangrene; I96 Gangrene, not elsewhere classified; I10 Essential (primary) hypertension; E11.9 Type 2 diabetes mellitus without complications; Z91.14 Patient's other noncompliance with medication regimen; W19.XXXA Unspecified fall, initial encounter; Y93.89 Activity, other specified; Y92.89 Other specified places as the place of occurrence of the external cause; Y99.8 Other external cause status
CPT/HCPCS: 36415; 73030; 73200; 73660; 80053; 83036; 85025; 96374; 96376; 99285; J1170